=== PATIENT | female | born 1970 | race Caucasian/White ===

== ENCOUNTER → 2019-01-14 | Outpatient (CLI) | payer MEDICAID | LOC: CARD 08:41 | PROVIDERS: ATTEND Family Medicine | DX: I08.2 Rheumatic disorders of both aortic and tricuspid valves (principal) | CPT/HCPCS: 93306 ==

== ENCOUNTER 2019-10-07 14:30 | Emergency (ER) | payer MEDICAID ==
[~2019-10-07] VITALS: Ht 162.6 cm; Wt 120.7 kg
--- OUTSIDE RECORDS SUMMARY | 2019-10-07 14:35 | XMS REPORT ---
Author Author Wanda ESCALERA [facility] Address [address] [place] [address] Care Team Providers Care Work Measurement Engineer Name Role Phone ESCALERA, ELOISE Unavailable PROBLEMS Type Condition ICD9-CM Code [id number] Code Onset Dates Condition S tatus SNOMED Code Problem Polycythemia D75.1 Active 2309693 03 Problem Abscess of left genital labia 616.4 Active 714552824 Problem Borderline diabetes 790.29 Active 6533538 Problem Type 2 diabetes mellitus wit h hyperosmolarity without coma, without long-term current use of insulin E11.00 Active 719827480503046 Problem Type 2 diabetes mellitus wit hout complication, without long-term current use of insulin E11.9 Active 176465539 Problem Hypertension I10 Active 2155239 3 Problem Hypertension 401.9 Active 9156617 3 Problem Other abnormal glucose R73.09 Active 580032086 Problem Mixed hyperlipidemia E78.2 Active 330561003 ALLERGIES No Information ENCOUNTERS Encounter Location Date Diagnosis [facility] [address] [place] [phone] Nov, 18 [facility] [address] [place] [phone] Oct, 18 [facility] [address] [place] [address] Oct, 18 [facility] [address] [place] [phone] Oct, 18 [facility] [address] [place] [address] Oct, 18 [facility] [address] [place] [address] [id number] [place] [address] Jun, [facility] [address] [place] [address] Jun, 18 [facility] [address] [place] [address] 15 Jun, 18 [facility] [address] [facility] [id number] [address] [place] [address] 07 Jun, 2017 [facility] [place] [address] [place] [address] Apr, 18 Hypertension I10 and Type 2 diabetes mellitus without complication, without long-term current use of insulin E11.9 [facility] [place] [address] [place] [address] Apr, 18 Type 2 diabetes mellitus without complication, without long-term current use of insulin E11.9 [facility] [place] [address] [place] [address] 28 Mar, 17 [facility] [place] [address] [place] [address] 31 Jan, 17 [facility] [place] [address] [place] [address] 09 Jan, 17 [facility] [place] [address] [place] [address] Dec, 17 [facility] [place] [address] [place] [address] 30 Nov, 17 Rhinorrhea J34.89 [facility] [place] [address] [place] [address] 23 Nov, 17 Type 2 diabetes mellitus without complication, without long-term current use of insulin E11.9 [facility] [place] [address] [place] [address] 18 Nov, 17 [facility] [place] [address] [place] [address] 16 Nov, 17 [facility] [place] [address] [place] [address] 16 Nov, 17 [facility] [place] [address] [place] [address] 15 Nov, 17 Type 2 diabetes mellitus without complication, without long-term current use of insulin E11.9 [facility] [place] [address] [place] [address] 08 Nov, 17 Well woman exam with routine gynecological exam Z01.419 and Hypertension I10 [facility] [place] [address] [place] [address] Oct, 17 [facility] [place] [address] [place] [address] Oct, 17 Type 2 diabetes mellitus without complication, without long-term current use of insulin E11.9 [facility] [place] [address] [place] [address] Oct, 17 [facility] [place] [address] [place] [address] Oct, 17 [facility] [place] [address] [place] [address] Sep, 17 [facility] [place] [address] [place] [address] August, 17 Hypertension I10 ; Mixed hyperlipidemia E78.2 ; Type 2 diabetes mellitus without complication, without long-term current use of insulin E11.9 and Polycythemia D75.1 [facility] [place] [address] [place] [address] Jul, 17 [facility] [place] [address] [place] [address] Jul, 17 [facility] [place] [address] [place] [address] Jul, 17 [facility] [place] [address] [place] [address] Jul, 17 [facility] [place] [address] [place] [address] Jul, 17 Type 2 diabetes mellitus without complication, without long-term current use of insulin E11.9 [facility] [place] [address] [place] [address] Jul, 17 Type 2 diabetes mellitus without complication, without long-term current use of insulin E11.9 [facility] [place] [address] [place] [address] Jul, 17 Elevated liver enzymes R74.8 and KARELY (acute kidney injury) N17.9 [facility] [place] [address] [place] [address] Jun, 17 Jaundice R17 [facility] [place] [address] [place] [address] Jun, 17 Jaundice R17 [facility] [place] [address] [place] [address] Jun, 17 Cellulitis of right lower extremity L03.115 [facility] [address] [address] Jun, 17 Dental examination Z01.20 [facility] [place] [address] [place] [address] Jun, 17 Hypertension I10 ; Mixed hyperlipidemia E78.2 and Type 2 diabetes mellitus without complication, without long-term current use of insulin E11.9 [facility] [address] [address] Jun, 17 Type 2 diabetes mellitus with hyperosmolarity without coma, without long-term current use of insulin E11.[address] [facility] [address] [address] May, [address] [facility] [address] [address] May, 17 Type 2 diabetes mellitus without complication, without long-term current use of insulin E11.9 [facility] [address] [address] Apr, 17 [facility] [address] [address] Apr, 17 Type 2 diabetes mellitus with hyperosmolarity without coma, without long-term current use of insulin E11.00 [facility] [address] [place] [address] Apr, 17 Type 2 diabetes mellitus with hyperosmolarity without coma, without long-term current use of insulin E11.00 [facility] [address] [place] [address] Feb, 16 Low serum erythropoietin level R79.89 and Abnormal CBC R79.89 [facility] [address] [address] Feb, 16 Abnormal CBC R79.[address] [facility] [address] [address] Jan, 16 Abnormal CBC [facility]79.89 [facility] [address] [address] Jan, 16 Hypertension I10 [facility] [address] [address] Dec, 16 [facility]10 [facility] [address] [address] Dec, 16 Hypertension I10 ; Mixed hyperlipidemia E78.2 and Anemia D64.9 [facility] [address] [address] Nov, 16 [facility] [address] [address] Nov, 16 Hypertension I10 [facility] [address] [address] Nov, 16 Hypertension I10 ; Type 2 diabetes mellitus with hyperosmolarity without coma, without long- term current use of insulin E11.00 and Mixed hyperlipidemia E78.2 [facility] [address] [address] Nov, 16 Hypertension I10 ; Other abnormal glucose R73.09 ; Screening for lipoid disorders Z13.220 and Abnormal CBC R79.89 [facility] [address] [address] Oct, 16 [facility] [address] [address] Sep, [address] [facility] [address] [address] Jun, 16 Hypertension I10 [facility] [address] [address] Apr, [address] [address] [address] Dec, 15 Hypertension 401.9 [facility] [address] [address] 20 Elijah, 20 15 Hypertension 401.9 and Borderline diabetes 790.29 IMMUNIZATIONS No Known Immunizations SOCIAL HISTORY Never Assessed REASON FOR VISIT repository med PLAN OF CARE VITAL SIGNS MEDICATIONS Medication Instructions Dosage Frequency Start Date End Date Duration S dee Lisinopril 10 mg TAKE 1 TABLET BY MOUTH DAILY Orally 30 30 Active Tradjenta 5 mg Orally Once a day 1 tablet 24h Jul, 9 0 days Active RESULTS No Results PROCEDURES No Known procedures INSTRUCTIONS MEDICATIONS ADMINISTERED No Known Medications MEDICAL (GENERAL) HISTORY Type Description Date Medical History Essential (primary) hypertension Medical History Mixed hyperlipidemia Medical History Other abnormal glucose Medical History diabetes Surgical History appendectomy Surgical History section Hospitalization History Surgery(s)/Childbirth(s) only
--- OUTSIDE RECORDS SUMMARY | 2019-10-07 14:35 | XMS REPORT ---
Author Author Wanda MATT Organization [facility] [address] [place] Address [address] [place] [address] Care Team Providers Care Statistical Consultant Name Role Phone HAILEE MATT Unavailable PROBLEMS Type Condition ICD9-CM Code [id number] Code Onset Dates Condition S tatus SNOMED Code Problem Type 2 diabetes mellitus wit hout complication, without long-term current use of insulin E11.9 Active 732136498 Problem Type 2 diabetes mellitus wit h hyperosmolarity without coma, without long-term current use of insulin E11.00 Active 792097585747301 Problem Polycythemia D75.1 Active 9080164 03 Problem Hypertension I10 Active 6218646 3 Problem Mixed hyperlipidemia E78.2 Active 013352693 Problem Other abnormal glucose R73.09 Active 122419541 ALLERGIES No Information ENCOUNTERS Encounter Location Date Diagnosis [facility] [address] [facility] [id number] [address] [place] [address] Jan, [facility] [address] [place] [address] Dec, [facility] [address] [place] [address] Dec, Type 2 diabetes mellitus without complication, without long-term current use of insulin E11.9 ; Heart murmur R01.1 and Encounter for immunization Z23 [facility] [address] [place] [address] Nov, 19 [facility] [address] [place] [address] Oct, 19 [facility] [address] [place] [address] August, 19 [facility] [address] [place] [address] August, 19 Type 2 diabetes mellitus without complication, without long-term current use of insulin E11.9 ; Elevated TSH R79.89 ; Hypertension I10 and Mixed hyperlipidemia E78.2 [facility] [address] [place] [address] August, 19 Type 2 diabetes mellitus without complication, without long-term current use of insulin E11.9 [facility] [address] [place] [address] 16 August, 19 [facility] [address] [place] [address] August, 19 [facility] [address] [place] [address] [place] [address] 24 Jul, 19 Type 2 diabetes mellitus without complication, without long-term current use of insulin E11.9 [facility] [address] [place] [address] 10 Jul, 19 Type 2 diabetes mellitus without complication, without long-term current use of insulin E11.9 [facility] [address] [place] [address] 25 Jun, 19 [facility] [address] [place] [address] 14 Jun, 19 [facility] [address] [place] [address] Jun, 19 Type 2 diabetes mellitus without complication, without long-term current use of insulin E11.9 [facility] [address] [place] [address] 25 May, 19 [facility] [address] [place] [address] May, 19 [facility] [address] [place] [address] May, 19 [facility] [address] [place] [address] 05 May, 19 Hypertension I10 ; Type 2 diabetes mellitus without complication, without long-term current use of insulin E11.9 ; Mixed hyperlipidemia E78.2 and BMI 40.0-44.9, adult Z68.41 [facility] [address] [facility] [id number] [address] [place] [address] Apr, [address] [place] [address] Apr, 19 [facility] [place] [address] [place] [address] Apr, 19 [facility] [place] [address] [place] [address] Jan, 18 [facility] [place] [address] [place] [address] Nov, 18 [facility] [place] [address] [facility] [address] Oct, 18 [facility] [place] [address] [facility] [address] Oct, 18 [facility] [place] [address] [place] [address] Oct, 18 [facility] [place] [address] [place] [address] Oct, 18 [facility] [address] [place] [id number] [address] [place] [address] Jun, [facility] [place] [address] [place] [address] Jun, 18 [facility] [place] [address] [place] [address] Jun, 18 [facility] [address] [place] [id number] [address] [place] [address] Jun, [facility] [place] [address] [place] [address] Apr, 18 Hypertension I10 and Type 2 diabetes mellitus without complication, without long-term current use of insulin E11.9 [facility] [place] [address] [place] [address] Apr, 18 Type 2 diabetes mellitus without complication, without long-term current use of insulin E11.9 [facility] [place] [address] [place] [address] Mar, 20 17 [facility] [place] [address] [place] [address] Jan, 20 17 [facility] [place] [address] [place] [address] 09 Jan, 17 [facility] [place] [address] [place] [address] Dec, 17 [facility] [place] [address] [place] [address] 30 Nov, 17 Rhinorrhea J34.89 [facility] [place] [address] [place] [address] 23 Nov, 17 Type 2 diabetes mellitus without complication, without long-term current use of insulin E11.9 [facility] [place] [address] [place] [address] 18 Nov, 17 [facility] [place] [address] [place] [address] 16 Nov, 17 [facility] [place] [address] [place] [address] 16 Nov, 17 [facility] [place] [address] [place] [address] 15 Nov, 17 Type 2 diabetes mellitus without complication, without long-term current use of insulin E11.9 [facility] [place] [address] [place] [address] 08 Nov, 17 Well woman exam with routine gynecological exam Z01.419 and Hypertension I10 [facility] [place] [address] [place] [address] Oct, 17 [facility] [place] [address] [place] [address] Oct, 17 Type 2 diabetes mellitus without complication, without long-term current use of insulin E11.9 [facility] [place] [address] [place] [address] Oct, 17 [facility] [place] [address] [place] [address] Oct, 17 [facility] [place] [address] [place] [address] Sep, 17 [facility] [place] [address] [place] [address] 12 August, 17 Hypertension I10 ; Mixed hyperlipidemia E78.2 ; Type 2 diabetes mellitus without complication, without long-term current use of insulin E11.9 and Polycythemia D75.1 [facility] [place] [address] [place] [address] 17 Jul, 17 [facility] [place] [address] [place] [address] 17 Jul, 17 [facility] [place] [address] [place] [address] Jul, 17 [facility] [place] [address] [place] [address] Jul, 17 [facility] [place] [address] [place] [address] Jul, 17 Type 2 diabetes mellitus without complication, without long-term current use of insulin E11.9 [facility] [address] [place] [address] 05 Jul, 17 Type 2 diabetes mellitus without complication, without long-term current use of insulin E11.[address] [facility] [address] [address] 04 Jul, 17 Elevated liver enzymes R74.8 and KARELY (acute kidney injury) N17.[address] [facility] [address] [address] 28 Jun, 17 Jaundice R17 [facility] [address] [address] 28 Jun, 17 Jaundice R17 [facility] [address] [address] 22 Jun, 17 Cellulitis of right lower extremity L03.115 [facility] [address] [address] 22 Jun, 17 Dental examination Z01.20 [facility] [address] [address] 07 Jun, 17 Hypertension I10 ; Mixed hyperlipidemia E78.2 and Type 2 diabetes mellitus without complication, without long-term current use of insulin E11.[address] [facility] [address] [address] 03 Jun, 17 Type 2 diabetes mellitus with hyperosmolarity without coma, without long-term current use of insulin E11.00 [facility] [address] [place] [address] May, 17 [facility] [address] [address] May, 17 Type 2 diabetes mellitus without complication, without long-term current use of insulin E11.9 [facility] [place] [address] [place] [address] Apr, 17 [facility] [address] [address] Apr, 17 Type 2 diabetes mellitus with hyperosmolarity without coma, without long-term current use of insulin E11.[address] [facility] [address] [address] Apr, 17 Type 2 diabetes mellitus with hyperosmolarity without coma, without long-term current use of insulin E11.[address] [address] [address] [address] Feb, 16 Low serum erythropoietin level R79.89 and Abnormal CBC R79.[address] [address] Feb, 16 Abnormal CBC R79.89 [facility] [address] [address] Jan, 16 Abnormal CBC R79.89 [facility] [address] [address] Jan, 16 Hypertension I10 [facility] [address] [address] Dec, 16 Hypertension I10 [facility] [address] [address] Dec, 16 Hypertension I10 ; Mixed hyperlipidemia E78.2 and Anemia D64.[address] [address] Nov, 16 [facility] [address] [address] Nov, 16 [address] [address] Nov, 16 Hypertension I10 ; Type 2 diabetes mellitus with hyperosmolarity without coma, without long- term current use of insulin E11.00 and Mixed hyperlipidemia E78.[address] [address] Nov, 16 Hypertension I10 ; Other abnormal glucose R73.09 ; Screening for lipoid disorders Z13.220 and Abnormal CBC R79.[address] [address] Oct, [address] [address] Sep, [address] [address] Jun, 16 Hypertension I10 [address] [address] Apr, [address] [address] Dec, 15 Hypertension 401.[address] [address] Oct, 15 Hypertension 401.9 and Borderline diabetes 790.29 IMMUNIZATIONS No Known Immunizations SOCIAL HISTORY Never Assessed REASON FOR VISIT Lancets (repository) PLAN OF CARE VITAL SIGNS MEDICATIONS Unknown Medications RESULTS No Results PROCEDURES No Known procedures INSTRUCTIONS MEDICATIONS ADMINISTERED No Known Medications MEDICAL (GENERAL) HISTORY Type Description Date Medical History Essential (primary) hypertension Medical History Mixed hyperlipidemia Medical History Other abnormal glucose Medical History diabetes Surgical History appendectomy Surgical History section Hospitalization History Surgery(s)/Childbirth(s) only
--- OUTSIDE RECORDS SUMMARY | 2019-10-07 14:35 | XMS REPORT ---
Author Author Wanda ESCALERA [facility] Address [address] [place] [address] Care Team Providers Care Central Office Technician Name Role Phone ESCALERA, ELOISE Unavailable PROBLEMS Type Condition ICD9-CM Code [id number] Code Onset Dates Condition S tatus SNOMED Code Problem Polycythemia D75.1 Active 9047678 03 Problem Abscess of left genital labia 616.4 Active 003443922 Problem Borderline diabetes 790.29 Active 4071260 Problem Type 2 diabetes mellitus wit h hyperosmolarity without coma, without long-term current use of insulin E11.00 Active 159731927523408 Problem Type 2 diabetes mellitus wit hout complication, without long-term current use of insulin E11.9 Active 754612349 Problem Hypertension I10 Active 7456371 3 Problem Hypertension 401.9 Active 3621815 3 Problem Other abnormal glucose R73.09 Active 444139491 Problem Mixed hyperlipidemia E78.2 Active 158293650 ALLERGIES No Information ENCOUNTERS Encounter Location Date Diagnosis [facility] [address] [place] [phone] Nov, 18 [facility] [address] [place] [phone] Oct, 18 [facility] [address] [place] [phone] Oct, 18 [facility] [address] [place] [phone] Oct, [address] [facility] [address] [place] [phone] Oct, 18 [facility] [address] [place] [address] [id number] [address], [place] [address] Jun, [facility] [address] [place] [phone] Jun, [address] [facility] [address] [place] [address] 15 Jun, 18 [facility] [address] [facility] [id number] [address] [place] [address] 07 Jun, 2017 [facility] [place] [address] [place] [address] Apr, 18 Hypertension I10 and Type 2 diabetes mellitus without complication, without long-term current use of insulin E11.9 [facility] [place] [address] [place] [address] Apr, 18 Type 2 diabetes mellitus without complication, without long-term current use of insulin E11.9 [facility] [place] [address] [place] [address] 28 Mar, 17 [facility] [place] [address] [place] [address] 31 Jan, 17 [facility] [place] [address] [place] [address] 09 Jan, 17 [facility] [place] [address] [place] [address] Dec, 17 [facility] [place] [address] [place] [address] 30 Nov, 17 Rhinorrhea J34.89 [facility] [place] [address] [place] [address] 23 Nov, 17 Type 2 diabetes mellitus without complication, without long-term current use of insulin E11.9 [facility] [place] [address] [place] [address] 18 Nov, 17 [facility] [place] [address] [place] [address] 16 Nov, 17 [facility] [place] [address] [place] [address] 16 Nov, 17 [facility] [place] [address] [place] [address] 15 Nov, 17 Type 2 diabetes mellitus without complication, without long-term current use of insulin E11.9 [facility] [place] [address] [place] [address] 08 Nov, 17 Well woman exam with routine gynecological exam Z01.419 and Hypertension I10 [facility] [place] [address] [place] [address] Oct, 17 [facility] [place] [address] [place] [address] Oct, 17 Type 2 diabetes mellitus without complication, without long-term current use of insulin E11.9 [facility] [place] [address] [place] [address] Oct, 17 [facility] [place] [address] [place] [address] Oct, 17 [facility] [place] [address] [place] [address] Sep, 17 [facility] [place] [address] [place] [address] August, 17 Hypertension I10 ; Mixed hyperlipidemia E78.2 ; Type 2 diabetes mellitus without complication, without long-term current use of insulin E11.9 and Polycythemia D75.1 [facility] [place] [address] [place] [address] Jul, 17 [facility] [place] [address] [place] [address] Jul, 17 [facility] [place] [address] [place] [address] Jul, 17 [facility] [place] [address] [place] [address] Jul, 17 [facility] [place] [address] [place] [address] Jul, 17 Type 2 diabetes mellitus without complication, without long-term current use of insulin E11.9 [facility] [place] [address] [place] [address] Jul, 17 Type 2 diabetes mellitus without complication, without long-term current use of insulin E11.9 [facility] [place] [address] [place] [address] Jul, 17 Elevated liver enzymes R74.8 and KARELY (acute kidney injury) N17.9 [facility] [place] [address] [place] [address] Jun, 17 Jaundice R17 [facility] [place] [address] [place] [address] Jun, 17 Jaundice R17 [facility] [place] [address] [place] [address] Jun, 17 Cellulitis of right lower extremity L03.115 [facility] [address] [address] Jun, 17 Dental examination Z01.20 [facility] [place] [address] [place] [address] Jun, 17 Hypertension I10 ; Mixed hyperlipidemia E78.2 and Type 2 diabetes mellitus without complication, without long-term current use of insulin E11.9 [facility] [address] [address] Jun, 17 Type 2 diabetes mellitus with hyperosmolarity without coma, without long-term current use of insulin E11.[address] [facility] [address] [address] May, [address] [facility] [address] [address] May, 17 Type 2 diabetes mellitus without complication, without long-term current use of insulin E11.9 [facility] [address] [address] Apr, [address] [facility] [address] [address] Apr, 17 Type 2 diabetes mellitus with hyperosmolarity without coma, without long-term current use of insulin E11.00 [facility] [address] [place] [address] Apr, 17 Type 2 diabetes mellitus with hyperosmolarity without coma, without long-term current use of insulin E11.00 [facility] [address] [place] [address] Feb, 16 Low serum erythropoietin level R79.89 and Abnormal CBC R79.89 [facility] [address] [address] Feb, 16 Abnormal CBC R79.[address] [facility] [address] [address] Jan, 16 Abnormal CBC R79.89 [facility] [address] [address] Jan, 16 Hypertension I10 [facility] [address] [address] Dec, 16 Hypertension I10 [facility] [address] [address] Dec, 16 Hypertension I10 ; Mixed hyperlipidemia E78.2 and Anemia D64.9 [facility] [address] [address] Nov, 16 [facility] [address] [address] Nov, 16 Hypertension I10 [facility] [address] [address] Nov, 16 Hypertension I10 ; Type 2 diabetes mellitus with hyperosmolarity without coma, without long- term current use of insulin E11.00 and Mixed hyperlipidemia E78.2 [facility] [address] [address] Nov, 16 Hypertension I10 ; Other abnormal glucose R73.09 ; Screening for lipoid disorders Z13.220 and Abnormal CBC R79.89 [facility] [address] [address] Oct, 16 [facility] [address] [address] Sep, [address] [facility] [address] [address] Jun, 16 Hypertension I10 [facility] [address] [address] Apr, [address] [place] [address] Dec, 15 Hypertension 401.9 [facility] [address] [address] 20 Elijah, 20 15 Hypertension 401.9 and Borderline diabetes 790.29 IMMUNIZATIONS No Known Immunizations SOCIAL HISTORY Never Assessed REASON FOR VISIT repository med refill PLAN OF CARE VITAL SIGNS MEDICATIONS Unknown Medications RESULTS No Results PROCEDURES No Known procedures INSTRUCTIONS MEDICATIONS ADMINISTERED No Known Medications MEDICAL (GENERAL) HISTORY Type Description Date Medical History Essential (primary) hypertension Medical History Mixed hyperlipidemia Medical History Other abnormal glucose Medical History diabetes Surgical History appendectomy Surgical History section Hospitalization History Surgery(s)/Childbirth(s) only
--- OUTSIDE RECORDS SUMMARY | 2019-10-07 14:36 | XMS REPORT ---
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 Name Role Phone ELOISE ESCALERA CP Unavailable Allergies, Adverse Reactions, Alerts Substance Reaction Event Type Keflex numbness in extremities Drug Allergy Problems Problem Type Condition Code Onset Dates Condition Statu s Assessment Abnormal CBC R79.89 Active Problem Mixed hyperlipidemia E78.2 Active Problem Hypertension I10 Active Problem Other abnormal glucose R73.09 Activ e Problem Abscess of left genital labia 616.4 Active Assessment Low serum erythropoietin level R79.89 Active Problem Hypertension 401.9 Active Problem Borderline diabetes 790.29 Active Medications Medication Code System Code Instructions Start Date End Date Status Dosage Hydrochlorothiazide [facility] [address]-48 25 MG Orally Once a day Dec 062015 1 tablet Metformin HCl [facility] [address]-73 1000 MG Orally Twice a day 2 capsules Lovastatin [facility] [address]-74 40 mg Orally Once a day Nov 14, 2015 1 tablet with a meal Lisinopril [facility] [address]-31 40 mg Orally Once a day 1 tablet Once a day Orally Procedures Procedure Coding System Code Date Office Visit, Est Pt., Level 3 CPT-4 05083 N 2015 Vital Signs Date/Time: Feb 07, 2016 Cardiac Monitoring Heart Rate 72 bpm Weight 221.7 lbs Height 5'4" in BMI 38.05 Index Blood Pressure Diastolic 62 mmHg Blood Pressure Systolic 118 mmHg Results No Known Results Summary Purpose [employer] Submission
--- OUTSIDE RECORDS SUMMARY | 2019-10-07 14:36 | XMS REPORT ---
Author Author aWnda LEYVA Organization [facility] Address [address] [place] [address] Care Team Providers Care Wall Mirror Department Supervisor Name Role Phone LOKESH LEYVA Unavailable PROBLEMS Type Condition ICD9-CM Code [id number] Code Onset Dates Condition S tatus SNOMED Code Problem Polycythemia D75.1 Active 1786538 03 Problem Abscess of left genital labia 616.4 Active 826311759 Problem Borderline diabetes 790.29 Active 9230208 Problem Type 2 diabetes mellitus wit h hyperosmolarity without coma, without long-term current use of insulin E11.00 Active 951307976805231 Problem Type 2 diabetes mellitus wit hout complication, without long-term current use of insulin E11.9 Active 147999131 Problem Hypertension I10 Active 3917402 3 Problem Hypertension 401.9 Active 7046087 3 Problem Other abnormal glucose R73.09 Active 130557102 Problem Mixed hyperlipidemia E78.2 Active 981667594 ALLERGIES Substance Reaction Event Type Date Status Keflex numbness in extremities Drug Allergy Nov, Acti ve ENCOUNTERS Encounter Location Date Diagnosis [facility] [address] [facility] [id number] [address] [place] [phone] Jun, [facility] [place] [address] [facility] [address] [id number] [place] [address] Jun, [facility] [place] [address] [facility] [id number] [place], [place] [address] Jun, [facility] [address] [facility] [id number] [address] [place] [address] Jun, [facility] [place] [address] [facility] [address] [id number] [place], [place] [phone] Apr, Hypertension I10 and Type 2 diabetes mellitus without complication, without long-term current use of insulin E11.9 [facility] [place] [address] [facility] [id number] [place] [address]1360 Apr, Type 2 diabetes mellitus without complication, without long-term current use of insulin E11.9 [facility] [place] [address] [facility] [address] [id number] [place], [place] [address] 603736 Mar, [facility] [place] [address] [facility] [address] [id number] [place], [place] [address]99[address] Jan, [facility] [place] [address] [facility] [address] [id number] [place] [address] 6970[address] Jan, [facility] [place] [address] [facility] [address] [id number] [place], [place] [address] 9839[address] Dec, [facility] [place] [address] [facility] [address] [id number] [place], [place] [address]23557 Nov, Rhinorrhea J34.89 [facility] [place] [address] [facility] [address] [id number] [place], [place] [address] 829735 Nov, Type 2 diabetes mellitus without complication, without long-term current use of insulin E11.9 [facility] [place] [address] [facility] [address] [id number] [place] [address] Nov, [facility] [place] [address] [facility] [address] [id number] [place] [address] 805130 Nov, [facility] [place] [address] [facility] [address] [id number] [place] [address] 602848 Nov, [facility] [place] [address] [facility] [address] [id number] [place] [address] 761901 Nov, Type 2 diabetes mellitus without complication, without long-term current use of insulin E11.9 [facility] [place] [address] [facility] [address] [id number] [place] [address] 335292 Nov, Well woman exam with routine gynecological exam Z01.419 and Hypertension I10 [facility] [place] [address] [facility] [address] [id number] [place] [address] 198630 Oct, [facility] [place] [address] [facility] [address] [id number] [place] [address] 006574 Oct, Type 2 diabetes mellitus without complication, without long-term current use of insulin E11.9 [facility] [place] [address] [facility] [address] [id number] [place] [address]268 Oct, [facility] [place] [address] [facility] [address] [id number] [place] [address]604 Oct, [facility] [place] [address] [facility] [address] [id number] [place] [address]751 Sep, [facility] [place] [address] [facility] [address] [id number] [place] [address] 619685 August, Hypertension I10 ; Mixed hyperlipidemia E78.2 ; Type 2 diabetes mellitus without complication, without long-term current use of insulin E11.9 and Polycythemia D75.1 [facility] [place] [address] [facility] [address] [id number] [place] [address] 836095 Jul, [facility] [place] [address] [facility] [address] [id number] [place] [address] 942791 Jul, [facility] [place] [address] [facility] [address] [id number] [place] [address] 899733 Jul, [facility] [place] [address] [facility] [address] [id number] [place] [address] 422116 Jul, [facility] [place] [address] [facility] [address] [id number] [place] [address] 055266 Jul, Type 2 diabetes mellitus without complication, without long-term current use of insulin E11.9 [facility] [place] [address] [facility] [address] [id number] [place] [address] 209836 Jul, Type 2 diabetes mellitus without complication, without long-term current use of insulin E11.9 [facility] [place] [address] [facility] [address] [id number] [place] [address] 011995 Jul, Elevated liver enzymes R74.8 and KARELY (acute kidney injury) N17.9 [facility] [place] [address] [facility] [address] [id number] [place] [address] 354617 Jun, Jaundice R17 [facility] [place] [address] [facility] [address] [id number] [place] [address] 260731 Jun, Jaundice R17 [facility] [place] [address] [facility] [address] [id number] [place] [address] 848556 Jun, Cellulitis of right lower extremity L03.115 [facility] [place] [address] [facility] [id number] [place] [address] 743778 Jun, Dental examination Z01.20 [facility] [place] [address] [facility] [id number] [place] [address] 503223 Jun, Hypertension I10 ; Mixed hyperlipidemia E78.2 and Type 2 diabetes mellitus without complication, without long-term current use of insulin E11.9 [facility] [place] [address] [place] [address] C [id number] [place] [address] 173431 Jun, Type 2 diabetes mellitus with hyperosmolarity without coma, without long-term current use of insulin E11.00 [facility] [place] [address] [place] [address] C [id number] [place], [place] [address] 721254 May, [facility] [place] [address] [place] [address] C [id number] [place] [address] 317168 May, Type 2 diabetes mellitus without complication, without long-term current use of insulin E11.9 [facility] [place] [address] [place] [address] C [id number] [place] [address] 614045 Apr, [facility] [place] [address] [place] [address] C [id number] [place] [address] 540839 Apr, Type 2 diabetes mellitus with hyperosmolarity without coma, without long-term current use of insulin E11.00 [facility] [place] [address] [place] [address] C [id number] [place] [address] 876394 Apr, Type 2 diabetes mellitus with hyperosmolarity without coma, without long-term current use of insulin E11.00 [facility] [place] [address] [place] [address] C [id number] [place] [address] 622521 Feb, Low serum erythropoietin level R79.89 and Abnormal CBC R79.89 [facility] [place] [address] [place] [address] C [id number] [place] [address] 775216 Feb, Abnormal CBC R79.89 [facility] [place] [address] [place] [address] C [id number] [place], [place] [address] 220823 Jan, Abnormal CBC R79.89 [facility] [place] [address] [place] [address] C [id number] [place], [place] [address] 320467 Jan, Hypertension I10 [facility] [place] [address] [facility] [address] [id number] [place] [address] 081991 Dec, Hypertension I10 [facility] [place] [address] [facility] [address] [id number] [place] [address] 832483 Dec, Hypertension I10 ; Mixed hyperlipidemia E78.2 and Anemia D64.9 [facility] [place] [address] [facility] [address] [id number] [place] [address] 927662 Nov, [facility] [place] [address] [facility] [address] [id number] [place] [address] 387051 Nov, Hypertension I10 [facility] [place] [address] [facility] [address] [id number] [place] [address] 679397 Nov, Hypertension I10 ; Type 2 diabetes mellitus with hyperosmolarity without coma, without long-term current use of insulin E11.00 and Mixed hyperlipidemia E78.2 [facility] [place] [address] [facility] [address] [id number] [place] [address] 104826 Nov, Hypertension I10 ; Other abnormal glucose R73.09 ; Screening for lipoid disorders Z13.220 and Abnormal CBC R79.89 [facility] [place] [address] [facility] [address] [id number] [place] [address] 278325 Oct, [facility] [place] [address] [facility] [address] [id number] [place] [address] 514660 Sep, [facility] [place] [address] [facility] [address] [id number] [place] [address] 136670 Jun, Hypertension I10 [facility] [place] [address] [facility] [address] [id number] [place] [address] 723508 Apr, [facility] [place] [address] [facility] [address] [id number] [place] [address] 767540 30 Dec, 2014 Hypertension 401.9 [facility] [place] [address] [facility] [address] [id number] [place] [address] 040348 Oct, Hypertension 401.9 and Borderline diabetes 790.29 IMMUNIZATIONS No Known Immunizations SOCIAL HISTORY Never Assessed REASON FOR VISIT Sinus c/o runny nose, coming & going, bridge of nose inside just doesn't feel right; 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....................lwileyrn PLAN OF CARE Activity Details Follow Up prn Reason: VITAL SIGNS Height 5'4" in 2016-12-03 Weight 223 lbs 2016-12-03 Temperature 97.4 degrees Fahrenheit 2016-12-03 Heart Rate 72 bpm 2016-12-03 Respiratory Rate 18 2016-12-03 BMI 38.27 kg/m2 2016-12-03 Blood pressure systolic 130 mmHg 2016-12-03 Blood pressure diastolic 72 mmHg 2016-12-03 MEDICATIONS Medication Instructions Dosage Frequency Start Date End Date Duration S tatus Aspirin Adult Low Dose 81 MG Orally Once a day 1 tablet 24h Active Tradjenta 5 mg Orally Once a day 1 tablet 24h Jul, Active Lisinopril 10 MG TAKE 1 TABLET BY MOUTH DAILY Orally 30 30 Active Hydroxyurea 500 MG Activ e RESULTS No Results PROCEDURES No Known procedures INSTRUCTIONS MEDICATIONS ADMINISTERED No Known Medications MEDICAL (GENERAL) HISTORY Type Description Date Medical History Essential (primary) hypertension Medical History Mixed hyperlipidemia Medical History Other abnormal glucose Medical History diabetes Surgical History appendectomy Surgical History section Hospitalization History Surgery(s)/Childbirth(s) only
--- OUTSIDE RECORDS SUMMARY | 2019-10-07 14:36 | XMS REPORT ---
Author Author Wanda ESCALERA [facility] Address [address] [place] [address] Care Team Providers Care Set O Type Operator Name Role Phone JW ELOISE Unavailable PROBLEMS Type Condition ICD9-CM Code ATN41-LX Code Onset Dates Condition S tatus SNOMED Code Problem Polycythemia D75.1 Active 1938385 03 Problem Abscess of left genital labia 616.4 Active 767057424 Problem Borderline diabetes 790.29 Active 7541182 Problem Type 2 diabetes mellitus wit h hyperosmolarity without coma, without long-term current use of insulin E11.00 Active 280622773657517 Problem Type 2 diabetes mellitus wit hout complication, without long-term current use of insulin E11.9 Active 114542952 Problem Hypertension I10 Active 7458480 3 Problem Hypertension 401.9 Active 8841551 3 Problem Other abnormal glucose R73.09 Active 658465669 Problem Mixed hyperlipidemia E78.2 Active 055180208 ALLERGIES No Information ENCOUNTERS Encounter Location Date Diagnosis [facility] [address] [facility] [id number] [address] [place] [phone] 27 Jun, 2017 [facility] [place] [address] [facility] [address] [id number] [place] [address] Jun, [facility] [address] [facility] [address] [id number] [place] [phone] 15 Jun, 2017 [facility] [address] [facility] [id number] [address] [place] [phone] 07 Jun, 2017 [facility] [place] [address] [facility] [address] [id number] [place] [phone] Apr, Hypertension I10 and Type 2 diabetes mellitus without complication, without long-term current use of insulin E11.9 [facility] [address] [facility] [address] [id number] [place], [place] [address] 277196 Apr, Type 2 diabetes mellitus without complication, without long-term current use of insulin E11.9 [facility] [place] [address] [facility] [address] [id number] [place] [address] 956[address] Mar, [facility] [place] [address] [facility] [address] [id number] [place] [address] Jan, [facility] [place] [address] [facility] [address] [id number] [place] [address] 837124 Jan, [facility] [place] [address] [facility] [address] [id number] [place] [address] 387951 Dec, [facility] [place] [address] [facility] [address] [id number] [place] [address] 233023 Nov, Rhinorrhea J34.89 [facility] [place] [address] [facility] [address] [id number] [place] [address] 076132 Nov, Type 2 diabetes mellitus without complication, without long-term current use of insulin E11.9 [facility] [place] [address] [facility] [address] [id number] [place] [address] 634893 Nov, [facility] [place] [address] [facility] [address] [id number] [place] [address] 278964 Nov, [facility] [place] [address] [facility] [address] [id number] [place] [address] 518182 Nov, [facility] [place] [address] [facility] [address] [id number] [place] [address] 396341 15 Nov, 2016 Type 2 diabetes mellitus without complication, without long-term current use of insulin E11.9 [facility] [place] [address] [facility] [address] [id number] [place] [address] 679064 Nov, Well woman exam with routine gynecological exam Z01.419 and Hypertension I10 [facility] [place] [address] [facility] [address] [id number] [place] [address] 744441 Oct, [facility] [place] [address] [facility] [address] [id number] [place] [address] 831894 Oct, Type 2 diabetes mellitus without complication, without long-term current use of insulin E11.9 [facility] [place] [address] [facility] [address] [id number] [place] [address] 606202 Oct, [facility] [place] [address] [facility] [address] [id number] [place] [address] 509653 Oct, [facility] [place] [address] [facility] [address] [id number] [place] [address] 613857 Sep, [facility] [place] [address] [facility] [address] [id number] [place] [address] 586233 August, Hypertension I10 ; Mixed hyperlipidemia E78.2 ; Type 2 diabetes mellitus without complication, without long-term current use of insulin E11.9 and Polycythemia D75.1 [facility] [place] [address] [facility] [address] [id number] [place] [address] 176648 Jul, [facility] [place] [address] [facility] [address] [id number] [place] [address] 025435 Jul, [facility] [place] [address] [facility] [address] [id number] [place] [address] 967713 Jul, [facility] [place] [address] [facility] [address] [id number] [place] [address] 808794 Jul, [facility] [place] [address] [facility] [address] [id number] [place] [address] 278933 Jul, Type 2 diabetes mellitus without complication, without long-term current use of insulin E11.9 [facility] [place] [address] [facility] [address] [id number] [place] [address] 729988 Jul, Type 2 diabetes mellitus without complication, without long-term current use of insulin E11.9 [facility] [place] [address] [facility] [address] [id number] [place] [address] 195782 Jul, Elevated liver enzymes R74.8 and KARELY (acute kidney injury) N17.9 [facility] [place] [address] [facility] [address] [id number] [place] [address] 790519 Jun, Jaundice R17 [facility] [place] [address] [facility] [address] [id number] [place] [address] 728610 Jun, Jaundice R17 [facility] [place] [address] [facility] [address] [id number] [place] [address] 689449 Jun, Cellulitis of right lower extremity L03.115 [facility] [place] [address] [facility] [address] [id number] [place] [address] 029168 Jun, Dental examination Z01.20 [facility] [place] [address] [facility] [address] [id number] [place] [address] 224213 Jun, Hypertension I10 ; Mixed hyperlipidemia E78.2 and Type 2 diabetes mellitus without complication, without long-term current use of insulin E11.9 [facility] [place] [address] [facility] [address] [id number] [place] [address] 121228 Jun, Type 2 diabetes mellitus with hyperosmolarity without coma, without long-term current use of insulin E11.00 [facility] [place] [address] [facility] [address] [id number] [place] [address] 608378 May, [facility] [place] [address] [place] [address] C [id number] [place] [address] 024101 May, Type 2 diabetes mellitus without complication, without long-term current use of insulin E11.9 [facility] [place] [address] [place] [address] C [id number] [place] [address] 358648 Apr, [facility] [place] [address] [place] [address] C [id number] [place] [address] 172180 Apr, Type 2 diabetes mellitus with hyperosmolarity without coma, without long-term current use of insulin E11.00 [facility] [place] [address] [place] [address] C [id number] [place] [address] 816213 Apr, Type 2 diabetes mellitus with hyperosmolarity without coma, without long-term current use of insulin E11.00 [facility] [place] [address] [place] [address] C [id number] [place] [address] 843106 Feb, Low serum erythropoietin level R79.89 and Abnormal CBC R79.89 [facility] [place] [address] [place] [address] C [id number] [place] [address] 808143 Feb, Abnormal CBC R79.89 [facility] [place] [address] [place] [address] C [id number] [place] [address] 158372 Jan, Abnormal CBC R79.89 [facility] [place] [address] [place] [address] C [id number] [place] [address] 922425 Jan, Hypertension I10 [facility] [place] [address] [facility] [address] [id number] [place] [address] 253450 Dec, Hypertension I10 [facility] [place] [address] [facility] [address] [id number] [place] [address] 615636 Dec, Hypertension I10 ; Mixed hyperlipidemia E78.2 and Anemia D64.9 [facility] [place] [address] [facility] [address] [id number] [place] [address] 560996 Nov, [facility] [place] [address] [facility] [address] [id number] [place] [address] 264022 Nov, Hypertension I10 [facility] [place] [address] [place] [address] [address] [id number] [place] [address] 516521 Nov, Hypertension I10 ; Type 2 diabetes mellitus with hyperosmolarity without coma, without long-term current use of insulin E11.00 and Mixed hyperlipidemia E78.2 [facility] [place] [address] [facility] [address] [id number] [place] [address] 306826 Nov, Hypertension I10 ; Other abnormal glucose R73.09 ; Screening for lipoid disorders Z13.220 and Abnormal CBC R79.89 [facility] [place] [address] [place] [address] [address] [id number] [place] [address] 591839 Oct, [facility] [place] [address] [facility] [address] [id number] [place] [address] 372082 Sep, [facility] [place] [address] [place] [address] C [id number] [place] [address] 714792 Jun, Hypertension I10 [facility] [place] [address] [facility] [address] [id number] [place] [address] 294391 Apr, [facility] [place] [address] [place] [address] C [id number] [place] [address] 292850 Dec, Hypertension 401.9 [facility] [place] [address] [place] [address] C [id number] [place] [address] 378856 Oct, Hypertension 401.9 and Borderline diabetes 790.29 IMMUNIZATIONS No Known Immunizations SOCIAL HISTORY Never Assessed REASON FOR VISIT med request PLAN OF CARE VITAL SIGNS MEDICATIONS Unknown Medications RESULTS No Results PROCEDURES No Known procedures INSTRUCTIONS MEDICATIONS ADMINISTERED No Known Medications MEDICAL (GENERAL) HISTORY Type Description Date Medical History Essential (primary) hypertension Medical History Mixed hyperlipidemia Medical History Other abnormal glucose Medical History diabetes Surgical History appendectomy Surgical History section Hospitalization History Surgery(s)/Childbirth(s) only
--- OUTSIDE RECORDS SUMMARY | 2019-10-07 14:36 | XMS REPORT ---
Author Author Wanda ESCALERA [facility] Address [address] [place] [address] Care Team Providers Care Industrial Engineering Director Name Role Phone ESCALERA, ELOISE Unavailable PROBLEMS Type Condition ICD9-CM Code JFR96-BC Code Onset Dates Condition S tatus SNOMED Code Problem Polycythemia D75.1 Active 5868445 03 Problem Abscess of left genital labia 616.4 Active 195739736 Problem Borderline diabetes 790.29 Active 2968082 Problem Type 2 diabetes mellitus wit h hyperosmolarity without coma, without long-term current use of insulin E11.00 Active 736597049848970 Problem Type 2 diabetes mellitus wit hout complication, without long-term current use of insulin E11.9 Active 555511833 Problem Hypertension I10 Active 6822260 3 Problem Hypertension 401.9 Active 7810889 3 Problem Other abnormal glucose R73.09 Active 312165004 Problem Mixed hyperlipidemia E78.2 Active 838702926 ALLERGIES No Information ENCOUNTERS Encounter Location Date Diagnosis [facility] [address] [place] [phone] Nov, 18 [facility] [address] [place] [phone] Oct, 18 [facility] [address] [place] [phone] Oct, 18 [facility] [address] [place] [phone] Oct, 18 [facility] [address] [place] [address] Oct, 18 [facility] [address] [place] [address] [id number] [place] [address] Jun, [facility] [address] [place] [address] Jun, 18 [facility] [address] [place] [address] 15 Jun, 18 [facility] [address] [facility] [id number] [address] [place] [address] 07 Jun, 2017 [facility] [place] [address] [place] [address] Apr, 18 Hypertension I10 and Type 2 diabetes mellitus without complication, without long-term current use of insulin E11.9 [facility] [place] [address] [place] [address] Apr, 18 Type 2 diabetes mellitus without complication, without long-term current use of insulin E11.9 [facility] [place] [address] [place] [address] 28 Mar, 17 [facility] [place] [address] [place] [address] 31 Jan, 17 [facility] [place] [address] [place] [address] 09 Jan, 17 [facility] [place] [address] [place] [address] Dec, 17 [facility] [place] [address] [place] [address] 30 Nov, 17 Rhinorrhea J34.89 [facility] [place] [address] [place] [address] 23 Nov, 17 Type 2 diabetes mellitus without complication, without long-term current use of insulin E11.9 [facility] [place] [address] [place] [address] 18 Nov, 17 [facility] [place] [address] [place] [address] 16 Nov, 17 [facility] [place] [address] [place] [address] 16 Nov, 17 [facility] [place] [address] [place] [address] 15 Nov, 17 Type 2 diabetes mellitus without complication, without long-term current use of insulin E11.9 [facility] [place] [address] [place] [address] 08 Nov, 17 Well woman exam with routine gynecological exam Z01.419 and Hypertension I10 [facility] [place] [address] [place] [address] Oct, 17 [facility] [place] [address] [place] [address] Oct, 17 Type 2 diabetes mellitus without complication, without long-term current use of insulin E11.9 [facility] [place] [address] [place] [address] Oct, 17 [facility] [place] [address] [place] [address] Oct, 17 [facility] [place] [address] [place] [address] Sep, 17 [facility] [place] [address] [place] [address] August, 17 Hypertension I10 ; Mixed hyperlipidemia E78.2 ; Type 2 diabetes mellitus without complication, without long-term current use of insulin E11.9 and Polycythemia D75.1 [facility] [place] [address] [place] [address] Jul, 17 [facility] [place] [address] [place] [address] Jul, 17 [facility] [place] [address] [place] [address] Jul, 17 [facility] [place] [address] [place] [address] Jul, 17 [facility] [place] [address] [place] [address] Jul, 17 Type 2 diabetes mellitus without complication, without long-term current use of insulin E11.9 [facility] [place] [address] [place] [address] Jul, 17 Type 2 diabetes mellitus without complication, without long-term current use of insulin E11.9 [facility] [place] [address] [place] [address] Jul, 17 Elevated liver enzymes R74.8 and KARELY (acute kidney injury) N17.9 [facility] [place] [address] [place] [address] Jun, 17 Jaundice R17 [facility] [place] [address] [place] [address] Jun, 17 Jaundice R17 [facility] [address] [place] [address] Jun, 17 Cellulitis of right lower extremity L03.115 [facility] [address] [address] Jun, 17 Dental examination Z01.20 [facility] [address] [place] [address] Jun, 17 Hypertension I10 ; Mixed hyperlipidemia E78.2 and Type 2 diabetes mellitus without complication, without long-term current use of insulin E11.9 [facility] [address] [address] Jun, 17 Type 2 diabetes mellitus with hyperosmolarity without coma, without long-term current use of insulin E11.[address] [facility] [address] [address] May, 17 [facility] [address] [address] May, 17 Type 2 diabetes mellitus without complication, without long-term current use of insulin E11.9 [facility] [address] [address] Apr, 17 [facility] [address] [address] Apr, 17 Type 2 diabetes mellitus with hyperosmolarity without coma, without long-term current use of insulin E11.00 [facility] [address] [place] [address] Apr, 17 Type 2 diabetes mellitus with hyperosmolarity without coma, without long-term current use of insulin E11.00 [facility] [address] [place] [address] Feb, 16 Low serum erythropoietin level R79.89 and Abnormal CBC R79.89 [facility] [address] [address] Feb, 16 Abnormal CBC R79.[address] [facility] [address] [address] Jan, 16 Abnormal CBC R79.89 [facility] [address] [address] Jan, 16 Hypertension I10 [facility] [address] [address] Dec, 16 [facility]10 [facility] [address] [address] Dec, 16 Hypertension I10 ; Mixed hyperlipidemia E78.2 and Anemia D64.9 [facility] [address] [address] Nov, [facility] [address] [address] Nov, 16 Hypertension I10 [facility] [address] [address] Nov, 16 Hypertension I10 ; Type 2 diabetes mellitus with hyperosmolarity without coma, without long- term current use of insulin E11.00 and Mixed hyperlipidemia E78.2 [facility] [address] [address] Nov, 16 Hypertension I10 ; Other abnormal glucose R73.09 ; Screening for lipoid disorders Z13.220 and Abnormal CBC R79.89 [facility] [address] [address] Oct, 16 [facility] [address] [address] Sep, [address] [facility] [address] [address] Jun, 16 [facility]ension [facility]10 [facility] [address] [address] Apr, [address] [place] [address] Dec, 15 Hypertension 401.9 [facility] [address] [address] 20 Elijah, 20 15 Hypertension 401.9 and Borderline diabetes 790.29 IMMUNIZATIONS No Known Immunizations SOCIAL HISTORY Never Assessed REASON FOR VISIT PLAN OF CARE VITAL SIGNS MEDICATIONS Medication Instructions Dosage Frequency Start Date End Date Duration S tatus Tradjenta 5 mg Orally Once a day [...]
--- OUTSIDE RECORDS SUMMARY | 2019-10-07 14:36 | XMS REPORT ---
Author Author Wanda ESCALERA Organization [facility] [address] Address [address] [place] [address] Care Team Providers Care Salon Professional Name Role Phone ELOISE ESCALERA Unavailable PROBLEMS Type Condition ICD9-CM Code [id number] Code Onset Dates Condition S tatus SNOMED Code Problem Polycythemia D75.1 Active 0410390 03 Problem Abscess of left genital labia 616.4 Active 295828384 Problem Borderline diabetes 790.29 Active 2300404 Problem Type 2 diabetes mellitus wit h hyperosmolarity without coma, without long-term current use of insulin E11.00 Active 248864059976391 Problem Type 2 diabetes mellitus wit hout complication, without long-term current use of insulin E11.9 Active 327519527 Problem Hypertension I10 Active 9621503 3 Problem Hypertension 401.9 Active 2410298 3 Problem Other abnormal glucose R73.09 Active 254552510 Problem Mixed hyperlipidemia E78.2 Active 115006519 ALLERGIES No Information ENCOUNTERS Encounter Location Date Diagnosis [facility] [address] [place] [address] Oct, [facility] [address] [place] [address] Oct, [place] [address] [address] [place] [id number] [place] [address] Jun, [facility] [address] [place] [address] Jun, [facility] [address] [place] [address] Jun, [facility] [address] [place] [id number] [address] [place] [address] Jun, [facility] [address] [place] [address] Apr, Hypertension I10 and Type 2 diabetes mellitus without complication, without long-term current use of insulin E11.[address] [facility] [address] [place] [address] Apr, Type 2 diabetes mellitus without complication, without long-term current use of insulin E11.9 [facility] [address] [place] [address] Mar, [facility] [address] [place] [address] Jan, [facility] [address] [place] [address] Jan, [facility] [address] [place] [address] Dec, [facility] [address] [place] [address] Nov, Rhinorrhea J34.89 [facility] [address] [place] [address] Nov, Type 2 diabetes mellitus without complication, without long-term current use of insulin E11.9 [facility] [address] [place] [address] Nov, [facility] [address] [place] [address] Nov, [facility] [address] [place] [address] Nov, [facility] [address] [place] [address] Nov, Type 2 diabetes mellitus without complication, without long-term current use of insulin E11.9 [facility] [address] [place] [address] Nov, Well woman exam with routine gynecological exam Z01.419 and Hypertension I10 [facility] [address] [place] [address] Oct, [facility] [address] [place] [address] Oct, Type 2 diabetes mellitus without complication, without long-term current use of insulin E11.9 [facility] [address] [place] [address] Oct, [facility] [address] [place] [address] Oct, [facility] [address] [place] [address] Sep, [facility] [address] [place] [address] August, Hypertension I10 ; Mixed hyperlipidemia E78.2 ; Type 2 diabetes mellitus without complication, without long-term current use of insulin E11.9 and Polycythemia D75.1 [facility] [place] [address] [place] [address] Jul, [facility] [address] [place] [address] Jul, [facility] [place] [address] [place] [address] Jul, [facility] [address] [place] [address] Jul, [facility] [place] [address] [place] [address] Jul, Type 2 diabetes mellitus without complication, without long-term current use of insulin E11.9 [facility] [place] [address] [place] [address] Jul, Type 2 diabetes mellitus without complication, without long-term current use of insulin E11.9 [facility] [address] [address] Jul, Elevated liver enzymes R74.8 and KARELY (acute kidney injury) N17.9 [facility] [place] [address] [place] [address] Jun, Jaundice R17 [facility] [place] [address] [place] [address] Jun, Jaundice R17 [facility] [place] [address] [place] [address] Jun, Cellulitis of right lower extremity L03.115 [facility] [address] [address] Jun, Dental examination Z01.20 [facility] [place] [address] [place] [address] Jun, Hypertension I10 ; Mixed hyperlipidemia E78.2 and Type 2 diabetes mellitus without complication, without long-term current use of insulin E11.9 [facility] [address] [address] Jun, Type 2 diabetes mellitus with hyperosmolarity without coma, without long-term current use of insulin E11.00 [facility] [address] [address] May, [facility] [address] [place] [address] May, Type 2 diabetes mellitus without complication, without long-term current use of insulin E11.9 [facility] [address] [place] [address] Apr, [facility] [address] [place] [address] Apr, Type 2 diabetes mellitus with hyperosmolarity without coma, without long-term current use of insulin E11.00 [facility] [address] [place] [address] Apr, Type 2 diabetes mellitus with hyperosmolarity without coma, without long-term current use of insulin E11.00 [facility] [place] [address] [place] [address] Feb, Low serum erythropoietin level R79.89 and Abnormal CBC R79.89 [facility] [address] [place] [address] Feb, Abnormal CBC R79.89 [facility] [place] [address] [place] [address] Jan, Abnormal CBC R79.89 [facility] [place] [address] [place] [address] Jan, Hypertension I10 [facility] [place] [address] [place] [address] Dec, Hypertension I10 [facility] [place] [address] [place] [address] Dec, Hypertension I10 ; Mixed hyperlipidemia E78.2 and Anemia D64.9 [facility] [address] [address] Nov, [facility] [address] [place] [address] Nov, Hypertension I10 [facility] [address] [place] [address] Nov, Hypertension I10 ; Type 2 diabetes mellitus with hyperosmolarity without coma, without long-term current use of insulin E11.00 and Mixed hyperlipidemia E78.2 [facility] [address] [place] [address] Nov, Hypertension I10 ; Other abnormal glucose R73.09 ; Screening for lipoid disorders Z13.220 and Abnormal CBC R79.89 [facility] [address] [place] [address] Oct, [address] [address] Sep, [address] [address] Jun, Hypertension I10 [address] [address] Apr, [address] [address] Dec, Hypertension 401.[address] [address] Oct, Hypertension 401.9 and Borderline diabetes 790.29 IMMUNIZATIONS No Known Immunizations SOCIAL HISTORY Never Assessed REASON FOR VISIT nurse call PLAN OF CARE VITAL SIGNS MEDICATIONS Unknown Medications RESULTS No Results PROCEDURES No Known procedures INSTRUCTIONS MEDICATIONS ADMINISTERED No Known Medications MEDICAL (GENERAL) HISTORY Type Description Date Medical History Essential (primary) hypertension Medical History Mixed hyperlipidemia Medical History Other abnormal glucose Medical History diabetes Surgical History appendectomy Surgical History section Hospitalization History Surgery(s)/Childbirth(s) only
--- OUTSIDE RECORDS SUMMARY | 2019-10-07 14:36 | XMS REPORT ---
Author Author Wanda ESCALERA Organization [employer] Address Unknown Phone Unavailable Care Team Providers Care Container Crane Operator Name Role Phone ELOISE ESCALERA CP Unavailable Allergies No Known Allergies Problems Problem Type Condition Code Onset Dates Condition Statu s Problem Hypertension 401.9 Active Problem Borderline diabetes 790.29 Active Problem Hypertension I10 Active Problem Abscess of left genital labia 616.4 Active Medications No Known Medications Results No Known Results Summary Purpose [employer] Submission
--- OUTSIDE RECORDS SUMMARY | 2019-10-07 14:36 | XMS REPORT ---
Author Author Wanda ESCALERA Organization [facility] Address [address] [place] [address] Care Team Providers Care Aligning Checker Name Role Phone ESCALERA, ELOISE Unavailable PROBLEMS Type Condition ICD9-CM Code [id number] Code Onset Dates Condition S tatus SNOMED Code Problem Polycythemia D75.1 Active 4368688 03 Problem Abscess of left genital labia 616.4 Active 776627814 Problem Borderline diabetes 790.29 Active 4977190 Problem Type 2 diabetes mellitus wit h hyperosmolarity without coma, without long-term current use of insulin E11.00 Active 831120693798381 Problem Type 2 diabetes mellitus wit hout complication, without long-term current use of insulin E11.9 Active 332130455 Problem Hypertension I10 Active 8515753 3 Problem Hypertension 401.9 Active 4077373 3 Problem Other abnormal glucose R73.09 Active 113810847 Problem Mixed hyperlipidemia E78.2 Active 353248278 ALLERGIES No Information ENCOUNTERS Encounter Location Date Diagnosis [facility] [address] [place] [address] Nov, 18 [facility] [address] [place] [address] Oct, 18 [facility] [address] [place] [address] Oct, 18 [facility] [address] [place] [address] Oct, 18 [facility] [address] [place] [address] Oct, 18 [facility] [address] [facility] [id number] [place] [address] Jun, [facility] [address] [place] [address] Jun, 18 [facility] [address] [place] [address] 15 Jun, 18 [facility] [address] [facility] [id number] [address] [place] [address] Jun, [facility] [address] [address] Apr, 18 Hypertension I10 and Type 2 diabetes mellitus without complication, without long-term current use of insulin E11.9 [facility] [place] [address] [place] [address] Apr, 18 Type 2 diabetes mellitus without complication, without long-term current use of insulin E11.9 [facility] [address] [address] 28 Mar, 17 [facility] [address] [address] 31 Jan, 17 [facility] [address] [address] Jan, 17 [facility] [address] [address] Dec, 17 [facility] [address] [address] 30 Nov, 17 Rhinorrhea J34.89 [facility] [address] [address] Nov, 17 Type 2 diabetes mellitus without complication, without long-term current use of insulin E11.[address] [address] 18 Nov, 17 [facility] [address] [address] 16 Nov, 17 [facility] [address] [address] 16 Nov, 17 [facility] [address] [address] 15 Nov, 17 Type 2 diabetes mellitus without complication, without long-term current use of insulin E11.9 [facility] [address] [address] 08 Nov, 17 Well woman exam with routine gynecological exam Z01.419 and Hypertension I10 [facility] [address] [address] Oct, 17 [facility] [address] [address] Oct, 17 Type 2 diabetes mellitus without complication, without long-term current use of insulin E11.9 [facility] [address] [address] Oct, 17 [facility] [address] [address] Oct, 17 [facility] [address] [address] Sep, 17 [facility] [address] [address] August, 17 Hypertension I10 ; Mixed hyperlipidemia E78.2 ; Type 2 diabetes mellitus without complication, without long-term current use of insulin E11.9 and Polycythemia D75.1 [facility] [address] [address] Jul, 17 [facility] [address] [address] Jul, 17 [facility] [address] [address] Jul, 17 [facility] [address] [address] Jul, 17 [facility] [address] [address] Jul, 17 Type 2 diabetes mellitus without complication, without long-term current use of insulin E11.9 [facility] [address] [address] Jul, 17 Type 2 diabetes mellitus without complication, without long-term current use of insulin E11.9 [facility] [address] [address] Jul, 17 Elevated liver enzymes R74.8 and KARELY (acute kidney injury) N17.9 [facility] [address] [address] Jun, 17 Jaundice R17 [facility] [address] [address] Jun, 17 Jaundice R17 [facility] [address] [address] Jun, 17 Cellulitis of right lower extremity L03.[address] [address] Jun, 17 Dental examination Z01.[address] [address] Jun, 17 Hypertension I10 ; Mixed hyperlipidemia E78.2 and Type 2 diabetes mellitus without complication, without long-term current use of insulin E11.[address] [address] Jun, 17 Type 2 diabetes mellitus with hyperosmolarity without coma, without long-term current use of insulin E11.[address] [address] May, [address] [address] May, 17 Type 2 diabetes mellitus without complication, without long-term current use of insulin E11.[address] [address] Apr, [address] [address] Apr, 17 Type 2 diabetes mellitus with hyperosmolarity without coma, without long-term current use of insulin E11.[address] [address] Apr, 17 Type 2 diabetes mellitus with hyperosmolarity without coma, without long-term current use of insulin E11.[address] [address] Feb, 16 Low serum erythropoietin level R79.89 and Abnormal CBC R79.[address] [address] Feb, 16 Abnormal CBC R79.[address] [address] Jan, 16 Abnormal CBC R79.[address] [address] Jan, 16 Hypertension I10 [address] [address] Dec, 16 Hypertension I10 [address] [address] Dec, 16 Hypertension I10 ; Mixed hyperlipidemia E78.2 and Anemia D64.[address] [address] Nov, [address] [address] Nov, 16 Hypertension I10 [address] [address] Nov, 16 Hypertension I10 ; Type 2 diabetes mellitus with hyperosmolarity without coma, without long-term current use of insulin E11.00 and Mixed hyperlipidemia E78.[address] [address] Nov, 16 Hypertension I10 ; Other abnormal glucose R73.09 ; Screening for lipoid disorders Z13.220 and Abnormal CBC R79.[address] [address] Oct, [address] [address] Sep, [address] [address] Jun, 16 Hypertension I10 [address] [address] Apr, [address] [address] Dec, 15 Hypertension 401.[address] [address] Oct, 15 Hypertension 401.9 and Borderline diabetes 790.29 IMMUNIZATIONS No Known Immunizations SOCIAL HISTORY Never Assessed REASON FOR VISIT PLAN OF CARE VITAL SIGNS MEDICATIONS Medication Instructions Dosage Frequency Start Date End Date Duration S tatus Hydroxyurea 500 MG Activ e RESULTS No Results PROCEDURES No Known procedures INSTRUCTIONS MEDICATIONS ADMINISTERED No Known Medications MEDICAL (GENERAL) HISTORY Type Description Date Medical History Essential (primary) hypertension Medical History Mixed hyperlipidemia Medical History Other abnormal glucose Medical History diabetes Surgical History appendectomy Surgical History section Hospitalization History Surgery(s)/Childbirth(s) only
--- OUTSIDE RECORDS SUMMARY | 2019-10-07 14:36 | XMS REPORT ---
Author Author Wanda ESCALERA Organization [facility] [address] Address [address] [place] [address] Care Team Providers Care Acid Operator Name Role Phone ELOISE ESCALERA Unavailable PROBLEMS Type Condition ICD9-CM Code [id number] Code Onset Dates Condition S tatus SNOMED Code Problem Polycythemia D75.1 Active 0586326 03 Problem Abscess of left genital labia 616.4 Active 374143159 Problem Borderline diabetes 790.29 Active 4386519 Problem Type 2 diabetes mellitus wit h hyperosmolarity without coma, without long-term current use of insulin E11.00 Active 332676825296214 Problem Type 2 diabetes mellitus wit hout complication, without long-term current use of insulin E11.9 Active 886807753 Problem Hypertension I10 Active 2974030 3 Problem Hypertension 401.9 Active 7473060 3 Problem Other abnormal glucose R73.09 Active 021911123 Problem Mixed hyperlipidemia E78.2 Active 742992131 ALLERGIES No Information ENCOUNTERS Encounter Location Date Diagnosis [facility] [address] [place] [address] Oct, [facility] [address] [place] [address] Oct, [place] [address] [address] [place] [id number] [address] [place] [address] Jun, [facility] [address] [place] [address] Jun, [facility] [address] [place] [address] Jun, [facility] [address] [place], [place] [id number] [address] [place] [address] Jun, [facility] [address] [place] [address] Apr, Hypertension I10 and Type 2 diabetes mellitus without complication, without long-term current use of insulin E11.9 [facility] [address] [facility] [address] Apr, Type 2 diabetes mellitus without complication, without long-term current use of insulin E11.9 [facility] [address] [place] [address] Mar, [facility] [address] [place] [address] Jan, [facility] [address] [place] [address] Jan, [facility] [address] [place] [address] Dec, [facility] [address] [place] [address] Nov, Rhinorrhea J34.89 [facility] [address] [place] [address] Nov, Type 2 diabetes mellitus without complication, without long-term current use of insulin E11.9 [facility] [address] [place] [address] Nov, [facility] [address] [place] [address] Nov, [facility] [address] [place] [address] Nov, [facility] [address] [place] [address] Nov, Type 2 diabetes mellitus without complication, without long-term current use of insulin E11.9 [facility] [address] [place] [address] Nov, Well woman exam with routine gynecological exam Z01.419 and Hypertension I10 [facility] [address] [place] [address] Oct, [facility] [address] [place] [address] Oct, Type 2 diabetes mellitus without complication, without long-term current use of insulin E11.9 [facility] [address] [place] [address] Oct, [facility] [address] [place] [address] Oct, [facility] [address] [place] [address] Sep, [facility] [address] [place] [address] August, Hypertension I10 ; Mixed hyperlipidemia E78.2 ; Type 2 diabetes mellitus without complication, without long-term current use of insulin E11.9 and Polycythemia D75.1 [facility] [place] [address] [place] [address] Jul, [facility] [address] [place] [address] Jul, [facility] [place] [address] [place] [address] Jul, [facility] [address] [place] [address] Jul, [facility] [place] [address] [place] [address] Jul, Type 2 diabetes mellitus without complication, without long-term current use of insulin E11.9 [facility] [place] [address] [place] [address] Jul, Type 2 diabetes mellitus without complication, without long-term current use of insulin E11.9 [facility] [address] [address] Jul, Elevated liver enzymes R74.8 and KARELY (acute kidney injury) N17.9 [facility] [place] [address] [place] [address] Jun, Jaundice R17 [facility] [place] [address] [place] [address] Jun, Jaundice R17 [facility] [place] [address] [place] [address] Jun, Cellulitis of right lower extremity L03.115 [facility] [address] [address] Jun, Dental examination Z01.20 [facility] [place] [address] [place] [address] Jun, Hypertension I10 ; Mixed hyperlipidemia E78.2 and Type 2 diabetes mellitus without complication, without long-term current use of insulin E11.9 [facility] [address] [address] Jun, Type 2 diabetes mellitus with hyperosmolarity without coma, without long-term current use of insulin E11.00 [facility] [address] [address] May, [facility] [address] [place] [address] May, Type 2 diabetes mellitus without complication, without long-term current use of insulin E11.9 [facility] [address] [place] [address] Apr, [facility] [address] [place] [address] Apr, Type 2 diabetes mellitus with hyperosmolarity without coma, without long-term current use of insulin E11.00 [facility] [address] [place] [address] Apr, Type 2 diabetes mellitus with hyperosmolarity without coma, without long-term current use of insulin E11.00 [facility] [place] [address] [place] [address] Feb, Low serum erythropoietin level R79.89 and Abnormal CBC R79.89 [facility] [address] [place] [address] Feb, Abnormal CBC R79.89 [facility] [place] [address] [place] [address] Jan, Abnormal CBC R79.89 [facility] [place] [address] [place] [address] Jan, Hypertension I10 [facility] [place] [address] [place] [address] Dec, Hypertension I10 [facility] [place] [address] [place] [address] Dec, Hypertension I10 ; Mixed hyperlipidemia E78.2 and Anemia D64.9 [facility] [address] [address] Nov, [facility] [address] [place] [address] Nov, Hypertension I10 [facility] [address] [place] [address] Nov, Hypertension I10 ; Type 2 diabetes mellitus with hyperosmolarity without coma, without long-term current use of insulin E11.00 and Mixed hyperlipidemia E78.2 [facility] [address] [place] [address] Nov, Hypertension I10 ; Other abnormal glucose R73.09 ; Screening for lipoid disorders Z13.220 and Abnormal CBC R79.89 [facility] [address] [place] [address] Oct, [address] [address] Sep, [address] [address] Jun, Hypertension I10 [address] [address] Apr, [address] [address] Dec, Hypertension 401.[address] [address] Oct, Hypertension 401.9 and Borderline diabetes 790.29 IMMUNIZATIONS No Known Immunizations SOCIAL HISTORY Never Assessed REASON FOR VISIT Requests return call PLAN OF CARE VITAL SIGNS MEDICATIONS Unknown Medications RESULTS No Results PROCEDURES No Known procedures INSTRUCTIONS MEDICATIONS ADMINISTERED No Known Medications MEDICAL (GENERAL) HISTORY Type Description Date Medical History Essential (primary) hypertension Medical History Mixed hyperlipidemia Medical History Other abnormal glucose Medical History diabetes Surgical History appendectomy Surgical History section Hospitalization History Surgery(s)/Childbirth(s) only
--- OUTSIDE RECORDS SUMMARY | 2019-10-07 14:36 | XMS REPORT ---
Author Author Wanda ESCALERA [facility] Address [address] [place] [address] Care Team Providers Care Student Affairs Dean Name Role Phone ESCALERA, ELOISE Unavailable PROBLEMS Type Condition ICD9-CM Code OBR56-EY Code Onset Dates Condition S tatus SNOMED Code Problem Polycythemia D75.1 Active 7574952 03 Problem Abscess of left genital labia 616.4 Active 787186871 Problem Borderline diabetes 790.29 Active 2339910 Problem Type 2 diabetes mellitus wit h hyperosmolarity without coma, without long-term current use of insulin E11.00 Active 398122620912966 Problem Type 2 diabetes mellitus wit hout complication, without long-term current use of insulin E11.9 Active 022827844 Problem Hypertension I10 Active 0054764 3 Problem Hypertension 401.9 Active 5473011 3 Problem Other abnormal glucose R73.09 Active 665426874 Problem Mixed hyperlipidemia E78.2 Active 883617227 ALLERGIES No Information ENCOUNTERS Encounter Location Date Diagnosis [facility] [address] [place] [address] Nov, 18 [facility] [address] [place] [address] Oct, 18 [facility] [address] [place] [address] Oct, 18 [facility] [address] [place] [phone] Oct, 18 [facility] [address] [place] [address] Oct, 18 [facility] [address] [place] [address] [id number] [address], [place] [address] Jun, [facility] [address] [place] [address] Jun, 18 [facility] [address] [place] [address] 15 Jun, 18 [facility] [address] [facility] [id number] [address] [place] [address] 07 Jun, 2017 [facility] [place] [address] [place] [address] Apr, 18 Hypertension I10 and Type 2 diabetes mellitus without complication, without long-term current use of insulin E11.9 [facility] [place] [address] [place] [address] Apr, 18 Type 2 diabetes mellitus without complication, without long-term current use of insulin E11.9 [facility] [place] [address] [place] [address] 28 Mar, 17 [facility] [place] [address] [place] [address] 31 Jan, 17 [facility] [place] [address] [place] [address] 09 Jan, 17 [facility] [place] [address] [place] [address] Dec, 17 [facility] [place] [address] [place] [address] 30 Nov, 17 Rhinorrhea J34.89 [facility] [place] [address] [place] [address] 23 Nov, 17 Type 2 diabetes mellitus without complication, without long-term current use of insulin E11.9 [facility] [place] [address] [place] [address] 18 Nov, 17 [facility] [place] [address] [place] [address] 16 Nov, 17 [facility] [place] [address] [place] [address] 16 Nov, 17 [facility] [place] [address] [place] [address] 15 Nov, 17 Type 2 diabetes mellitus without complication, without long-term current use of insulin E11.9 [facility] [place] [address] [place] [address] 08 Nov, 17 Well woman exam with routine gynecological exam Z01.419 and Hypertension I10 [facility] [place] [address] [place] [address] Oct, 17 [facility] [place] [address] [place] [address] Oct, 17 Type 2 diabetes mellitus without complication, without long-term current use of insulin E11.9 [facility] [place] [address] [place] [address] Oct, 17 [facility] [place] [address] [place] [address] Oct, 17 [facility] [place] [address] [place] [phone] Sep, 17 [facility] [place] [address] [place] [address] August, 17 Hypertension I10 ; Mixed hyperlipidemia E78.2 ; Type 2 diabetes mellitus without complication, without long-term current use of insulin E11.9 and Polycythemia D75.1 [facility] [place] [address] [place] [address] Jul, 17 [facility] [place] [address] [place] [address] Jul, 17 [facility] [place] [address] [place] [address] Jul, 17 [facility] [place] [address] [place] [address] Jul, 17 [facility] [place] [address] [place] [address] Jul, 17 Type 2 diabetes mellitus without complication, without long-term current use of insulin E11.9 [facility] [place] [address] [place] [address] Jul, 17 Type 2 diabetes mellitus without complication, without long-term current use of insulin E11.9 [facility] [place] [address] [place] [address] Jul, 17 Elevated liver enzymes R74.8 and KARELY (acute kidney injury) N17.9 [facility] [place] [address] [place] [address] Jun, 17 Jaundice R17 [facility] [place] [address] [place] [address] Jun, 17 Jaundice R17 [facility] [place] [address] [place] [address] Jun, 17 Cellulitis of right lower extremity L03.115 [facility] [address] [address] Jun, 17 Dental examination Z01.20 [facility] [place] [address] [place] [address] Jun, 17 Hypertension I10 ; Mixed hyperlipidemia E78.2 and Type 2 diabetes mellitus without complication, without long-term current use of insulin E11.9 [facility] [address] [address] Jun, 17 Type 2 diabetes mellitus with hyperosmolarity without coma, without long-term current use of insulin E11.[address] [facility] [address] [address] May, 17 [facility] [address] [address] May, 17 Type 2 diabetes mellitus without complication, without long-term current use of insulin E11.9 [facility] [address] [address] Apr, 17 [facility] [address] [address] Apr, 17 Type 2 diabetes mellitus with hyperosmolarity without coma, without long-term current use of insulin E11.00 [facility] [address] [place] [address] Apr, 17 Type 2 diabetes mellitus with hyperosmolarity without coma, without long-term current use of insulin E11.00 [facility] [address] [place] [address] Feb, 16 Low serum erythropoietin level R79.89 and Abnormal CBC R79.89 [facility] [address] [address] Feb, 16 Abnormal CBC R79.[address] [facility] [address] [address] Jan, 16 Abnormal CBC R79.89 [facility] [address] [address] Jan, 16 Hypertension I10 [facility] [address] [address] Dec, 16 [facility]pertension I10 [facility] [address] [address] Dec, 16 Hypertension I10 ; Mixed hyperlipidemia E78.2 and Anemia D64.9 [facility] [address] [address] Nov, 16 [facility] [address] [address] Nov, 16 Hypertension I10 [facility] [address] [address] Nov, 16 Hypertension I10 ; Type 2 diabetes mellitus with hyperosmolarity without coma, without long- term current use of insulin E11.00 and Mixed hyperlipidemia E78.2 [facility] [address] [address] Nov, 16 Hypertension I10 ; Other abnormal glucose R73.09 ; Screening for lipoid disorders Z13.220 and Abnormal CBC R79.89 [facility] [address] [address] Oct, 16 [facility] [address] [address] Sep, [address] [facility] [address] [address] Jun, 16 Hypertension I10 [facility] [address] [address] Apr, [address] [place] [address] Dec, 15 Hypertension 401.9 [facility] [address] [address] 20 Elijah, 20 15 Hypertension 401.9 and [...]
--- OUTSIDE RECORDS SUMMARY | 2019-10-07 14:36 | XMS REPORT ---
Author Author Wanda ESCALERA Organization [facility] Address [address] [place] [address] Care Team Providers Care Jewelry Appraiser Name Role Phone ESCALERA, ELOISE Unavailable PROBLEMS Type Condition ICD9-CM Code PVW24-BL Code Onset Dates Condition S tatus SNOMED Code Assessment Hypertension I10 Dec, Active 383 17564 Assessment Anemia D64.9 Dec, Active 400282 000 Problem Other abnormal glucose R73.09 Active 160692163 Problem Mixed hyperlipidemia E78.2 Active 466238041 Problem Borderline diabetes 790.29 Active 8291944 Problem Abscess of left genital labia 616.4 Active 491026515 Problem Hypertension I10 Active 7055554 3 Problem Hypertension 401.9 Active 4173559 3 ALLERGIES Substance Reaction Event Type Date Status Keflex numbness in extremities Drug Allergy Dec, Acti ve SOCIAL HISTORY No smoking Hx information available PLAN OF CARE VITAL SIGNS Height 5'4" in 2015-12-14 Weight 222.6 lbs 2015-12-14 Heart Rate 68 bpm 2015-12-14 Respiratory Rate 18 2015-12-14 BMI 38.21 kg/m2 2015-12-14 Blood pressure systolic 140 mmHg 2015-12-14 Blood pressure diastolic 90 mmHg 2015-12-14 MEDICATIONS Medication Instructions Dosage Frequency Start Date End Date Duration S tatus Lovastatin 40 MG Orally Once a day 1 tablet with a meal 24h Nov, Active Lisinopril 40 MG 1 tablet Once a day Orally daily Active Metformin HCl 1000 MG Orally Twice a day TAKE ONE TABLET TWICE D AILY WITH FOOD. 12h daily Active RESULTS Name Result Date Reference Range VITAMIN B12 2015-12-14 Vitamin B12 932 211-946 CBC 2015-12-14 WBC 12.4 3.4-10.8 RBC 5.59 3.77-5.28 Hemoglobin 18.1 11.1-15.9 Hematocrit 56.0 34.0-46.6 MCV 100 79-97 MCH 32.4 26.6-33.0 MCHC 32.3 31.5-35.7 RDW 15.8 12.3-15.4 Platelets 269 150-379 Neutrophils 77 Lymphs 18 Monocytes 4 Eos 1 Basos 0 Neutrophils (Absolute) 9.4 1.4-7.0 Lymphs (Absolute) 2.2 0.7-3.1 Monocytes(Absolute) 0.5 0.1-0.9 Eos (Absolute) 0.2 0.0-0.4 Baso (Absolute) 0.1 0.0-0.2 Immature Granulocytes 0 Immature Grans (Abs) 0.0 0.0-0.1 LIPID PANEL 2015-12-14 Cholesterol, Total 136 100-199 Triglycerides 194 0-149 HDL Cholesterol 35 >39 VLDL Cholesterol Alphonse 39 5-40 LDL Cholesterol Calc 62 0-99 PROCEDURES Procedure Date Ordered Related Diagnosis Body Site COMPLETE CBC W/AUTO DIFF WBC Dec 14, 2015 LIPID PANEL Dec 14, 2015 VENIPUNCT, ROUTINE* Dec 14, 2015 VITAMIN B-12 Dec 14, 2015 Office Visit, Est Pt., Level 3 Dec 14, 2015 IMMUNIZATIONS No Known Immunizations
--- OUTSIDE RECORDS SUMMARY | 2019-10-07 14:36 | XMS REPORT ---
Author Author Wanda ESCALERA Organization [facility] Address [address] [place] [address] Care Team Providers Care Associate Chief Nurse Name Role Phone JW ELOISE Unavailable PROBLEMS Type Condition ICD9-CM Code ZFN54-IO Code Onset Dates Condition S tatus SNOMED Code Problem Polycythemia D75.1 Active 7672645 03 Problem Abscess of left genital labia 616.4 Active 942384449 Problem Borderline diabetes 790.29 Active 2829954 Problem Type 2 diabetes mellitus wit h hyperosmolarity without coma, without long-term current use of insulin E11.00 Active 175257558523264 Problem Type 2 diabetes mellitus wit hout complication, without long-term current use of insulin E11.9 Active 074332959 Problem Hypertension I10 Active 6854044 3 Problem Hypertension 401.9 Active 0718272 3 Problem Other abnormal glucose R73.09 Active 284584396 Problem Mixed hyperlipidemia E78.2 Active 241897178 ALLERGIES No Information ENCOUNTERS Encounter Location Date Diagnosis [facility] [place] [address] [facility] [address] [id number] [place] [address] Oct, [facility] [place] [address] [id number] [place] [phone] Oct, [facility] [place] [address] [facility] [id number] [address] [place] [phone] Jun, [facility] [place] [address] [id number] [place] [address]29[address] Jun, [facility] [place] [address] [place] [address] [address] [id number] [place] [phone] Jun, [facility] [place] [address] [facility] [id number] [address] [place] [address] Jun, [facility] [address] [facility] [address] [id number] [place] [phone] Apr, Hypertension I10 and Type 2 diabetes mellitus without complication, without long-term current use of insulin E11.9 [facility] [place] [address] [facility] [address] [id number] [place] [address] Apr, Type 2 diabetes mellitus without complication, without long-term current use of insulin E11.9 [facility] [place] [address] [facility] [address] [id number] [place] [address]783 Mar, [facility] [place] [address] [facility] [address] [id number] [place] [address]557 Jan, [facility] [place] [address] [facility] [address] [id number] [place] [address] Jan, [facility] [place] [address] [facility] [address] [id number] [place] [address] 390842 Dec, [facility] [place] [address] [facility] [address] [id number] [place] [address]455 Nov, Rhinorrhea J34.89 [facility] [place] [address] [facility] [address] [id number] [place] [address] 522644 Nov, Type 2 diabetes mellitus without complication, without long-term current use of insulin E11.9 [facility] [place] [address] [facility] [address] [id number] [place] [address] 287272 Nov, [facility] [place] [address] [facility] [address] [id number] [place] [address] 9429[address] Nov, [facility] [place] [address] [facility] [address] [id number] [place] [address] 294498 Nov, [facility] [place] [address] [facility] [address] [id number] [place] [address] 165557 Nov, Type 2 diabetes mellitus without complication, without long-term current use of insulin E11.9 [facility] [place] [address] [facility] [address] [id number] [place] [address] 785659 Nov, Well woman exam with routine gynecological exam Z01.419 and Hypertension I10 [facility] [place] [address] [facility] [address] [id number] [place] [address] 285876 Oct, [facility] [place] [address] [facility] [address] [id number] [place] [address] 433291 Oct, Type 2 diabetes mellitus without complication, without long-term current use of insulin E11.9 [facility] [place] [address] [facility] [address] [id number] [place] [address] 501138 Oct, [facility] [place] [address] [facility] [address] [id number] [place] [address] 132415 Oct, [facility] [place] [address] [facility] [address] [id number] [place] [address] 677903 Sep, [facility] [place] [address] [facility] [address] [id number] [place] [address] 573730 August, Hypertension I10 ; Mixed hyperlipidemia E78.2 ; Type 2 diabetes mellitus without complication, without long-term current use of insulin E11.9 and Polycythemia D75.1 [facility] [place] [address] [facility] [address] [id number] [place] [address] 711460 Jul, [facility] [place] [address] [facility] [address] [id number] [place] [address] 569192 Jul, [facility] [place] [address] [facility] [address] [id number] [place] [address] 740238 Jul, [facility] [place] [address] [facility] [address] [id number] [place] [address] 412708 Jul, [facility] [place] [address] [facility] [address] [id number] [place] [address] 911275 Jul, Type 2 diabetes mellitus without complication, without long-term current use of insulin E11.9 [facility] [place] [address] [place] [address] [address] [id number] [place] [address] 145623 Jul, Type 2 diabetes mellitus without complication, without long-term current use of insulin E11.9 [facility] [place] [address] [facility] [address] [id number] [place] [address] 893438 Jul, Elevated liver enzymes R74.8 and KARELY (acute kidney injury) N17.9 [facility] [place] [address] [facility] [address] [id number] [place] [address] 010187 Jun, Jaundice R17 [facility] [place] [address] [facility] [address] [id number] [place] [address] 282928 Jun, Jaundice R17 [facility] [place] [address] [facility] [address] [id number] [place] [address] 391634 Jun, Cellulitis of right lower extremity L03.115 [facility] [place] [address] [facility] [address] [id number] [place] [address] 977178 Jun, Dental examination Z01.20 [facility] [place] [address] [facility] [address] [address] [id number] [place] [address] 187142 Jun, Hypertension I10 ; Mixed hyperlipidemia E78.2 and Type 2 diabetes mellitus without complication, without long-term current use of insulin E11.9 [facility] [place] [address] [place] [address] C [id number] [place] [address] 168984 Jun, Type 2 diabetes mellitus with hyperosmolarity without coma, without long-term current use of insulin E11.00 [facility] [place] [address] [place] [address] C [id number] [place] [address] 075243 May, [facility] [place] [address] [place] [address] C [id number] [place] [address] 559533 May, Type 2 diabetes mellitus without complication, without long-term current use of insulin E11.9 [facility] [place] [address] [place] [address] C [id number] [place] [address] 226383 Apr, [facility] [place] [address] [place] [address] C [id number] [place] [address] 984478 Apr, Type 2 diabetes mellitus with hyperosmolarity without coma, without long-term current use of insulin E11.00 [facility] [place] [address] [place] [address] C [id number] [place] [address] 973075 Apr, Type 2 diabetes mellitus with hyperosmolarity without coma, without long-term current use of insulin E11.00 [facility] [place] [address] [place] [address] C [id number] [place] [address] 651861 Feb, Low serum erythropoietin level R79.89 and Abnormal CBC R79.89 [facility] [place] [address] [facility] [address] [id number] [place] [address] 133658 Feb, Abnormal CBC R79.89 [facility] [place] [address] [place] [address] C [id number] [place] [address] 300008 Jan, Abnormal CBC R79.89 [facility] [place] [address] [facility] [address] [id number] [place] [address] 599191 Jan, Hypertension I10 [facility] [place] [address] [facility] [address] [id number] [place] [address] 921601 Dec, Hypertension I10 [facility] [place] [address] [facility] [address] [id number] [place] [address] 181740 Dec, Hypertension I10 ; Mixed hyperlipidemia E78.2 and Anemia D64.9 [facility] [place] [address] [facility] [address] [id number] [place] [address] 908395 Nov, [facility] [place] [address] [facility] [address] [id number] [place] [address] 779747 Nov, Hypertension I10 [facility] [place] [address] [facility] [address] [id number] [place] [address] 865898 Nov, Hypertension I10 ; Type 2 diabetes mellitus with hyperosmolarity without coma, without long-term current use of insulin E11.00 and Mixed hyperlipidemia E78.2 [facility] [place] [address] [facility] [address] [id number] [place] [address] 478098 Nov, Hypertension I10 ; Other abnormal glucose R73.09 ; Screening for lipoid disorders Z13.220 and Abnormal CBC R79.89 [facility] [place] [address] [facility] [address] [id number] [place] [address] 197827 Oct, [facility] [place] [address] [facility] [address] [id number] [place] [address] 456947 Sep, [facility] [place] [address] [facility] [address] [id number] [place] [address] 720617 Jun, Hypertension I10 [facility] [place] [address] [facility] [address] [id number] [place] [address] 443709 Apr, [facility] [place] [address] [facility] [address] [id number] [place] [address] 229828 30 Dec, 2014 Hypertension 401.9 [facility] [place] [address] [facility] [address] [id number] [place] [address] 156504 Oct, Hypertension 401.9 and Borderline diabetes 790.29 IMMUNIZATIONS No Known Immunizations SOCIAL HISTORY Never Assessed REASON FOR VISIT med refill PLAN OF CARE VITAL SIGNS MEDICATIONS Unknown Medications RESULTS No Results PROCEDURES No Known procedures INSTRUCTIONS MEDICATIONS ADMINISTERED No Known Medications MEDICAL (GENERAL) HISTORY Type Description Date Medical History Essential (primary) hypertension Medical History Mixed hyperlipidemia Medical History Other abnormal glucose Medical History diabetes Surgical History appendectomy Surgical History section Hospitalization History Surgery(s)/Childbirth(s) only
--- OUTSIDE RECORDS SUMMARY | 2019-10-07 14:36 | XMS REPORT ---
Author Author Wanda ESACLERA Organization [facility] Address [address] [place] [address] Care Team Providers Care Senior Client Advisor Name Role Phone ELOISE ESCALERA Unavailable PROBLEMS Type Condition ICD9-CM Code XRB80-HQ Code Onset Dates Condition S tatus SNOMED Code Problem Polycythemia D75.1 Active 2470493 03 Problem Abscess of left genital labia 616.4 Active 380095116 Problem Borderline diabetes 790.29 Active 2003636 Problem Type 2 diabetes mellitus wit h hyperosmolarity without coma, without long-term current use of insulin E11.00 Active 415452683607766 Problem Type 2 diabetes mellitus wit hout complication, without long-term current use of insulin E11.9 Active 101071396 Problem Hypertension I10 Active 0177291 3 Problem Hypertension 401.9 Active 2218813 3 Problem Other abnormal glucose R73.09 Active 430528561 Problem Mixed hyperlipidemia E78.2 Active 802124726 ALLERGIES Substance Reaction Event Type Date Status Keflex numbness in extremities Drug Allergy Jun, Acti ve SOCIAL HISTORY Never Assessed PLAN OF CARE Activity Details Follow Up 1 Week, prn, 3 Months Reason :with BP readings, DM visit VITAL SIGNS Height 5'4" in 2016-06-10 Weight 224.0 lbs 2016-06-10 Temperature 98.1 degrees Fahrenheit 2016-06-10 Heart Rate 80 bpm 2016-06-10 Respiratory Rate 20 2016-06-10 BMI 38.45 kg/m2 2016-06-10 Blood pressure systolic 88 mmHg 2016-06-10 Blood pressure diastolic 62 mmHg 2016-06-10 MEDICATIONS Medication Instructions Dosage Frequency Start Date End Date Duration S tatus Hydroxyurea 500 MG Activ e Lisinopril 40 MG TAKE 1 TABLET BY MOUTH DAILY 30 Active MetFORMIN HCl ER 500 MG TAKE 2 TABLETS TWICE DAILY WITH FOOD 12h Active Hydrochlorothiazide 25 MG 1 tablet Once a day Orally Active Lovastatin 40 MG TAKE 1 TABLET BY MOUTH DAILY WITH A MEAL 30 Active Aspirin Adult Low Dose 81 MG Orally Once a day 1 tablet 24h Active RESULTS No Results PROCEDURES No Known procedures IMMUNIZATIONS No Known Immunizations MEDICAL (GENERAL) HISTORY Type Description Date Medical History Essential (primary) hypertension Medical History Mixed hyperlipidemia Medical History Other abnormal glucose Medical History diabetes Surgical History appendectomy Surgical History section Hospitalization History Surgery(s)/Childbirth(s) only
--- OUTSIDE RECORDS SUMMARY | 2019-10-07 14:36 | XMS REPORT ---
Author Author Wanda ESCALERA Organization [facility] [address] Address [address] [place] [address] Care Team Providers Care Communication Analyst Name Role Phone ELOISE ESCALERA Unavailable PROBLEMS Type Condition ICD9-CM Code AIR03-MB Code Onset Dates Condition S tatus SNOMED Code Problem Polycythemia D75.1 Active 0570060 03 Problem Abscess of left genital labia 616.4 Active 717111811 Problem Borderline diabetes 790.29 Active 2671864 Problem Type 2 diabetes mellitus wit h hyperosmolarity without coma, without long-term current use of insulin E11.00 Active 586419904468088 Problem Type 2 diabetes mellitus wit hout complication, without long-term current use of insulin E11.9 Active 488416067 Problem Hypertension I10 Active 5742516 3 Problem Hypertension 401.9 Active 2268221 3 Problem Other abnormal glucose R73.09 Active 964650702 Problem Mixed hyperlipidemia E78.2 Active 301274002 ALLERGIES No Information ENCOUNTERS Encounter Location Date Diagnosis [facility] [address] [place] [address] Oct, [facility] [address] [place] [address] Oct, [facility] [address] [place] [id number] [address] [place] [address] Jun, [facility] [address] [place] [address] Jun, [facility] [address] [place] [address] Jun, [facility] [address] [place] [id number] [address] [place] [address] Jun, [facility] [address] [place] [address] Apr, Hypertension I10 and Type 2 diabetes mellitus without complication, without long-term current use of insulin E11.9 [facility] [address] [facility] [place] [address] Apr, Type 2 diabetes mellitus without complication, without long-term current use of insulin E11.9 [facility] [place] [address] [facility] [place] [address] Mar, [facility] [place] [address] [facility] [place] [address] Jan, [facility] [place] [address] [facility] [place] [address] Jan, [facility] [place] [address] [facility] [place] [address] Dec, [facility] [place] [address] [facility] [place] [address] Nov, Rhinorrhea J34.89 [facility] [place] [address] [facility] [place] [address] Nov, Type 2 diabetes mellitus without complication, without long-term current use of insulin E11.9 [facility] [place] [address] [facility] [place] [address] Nov, [facility] [place] [address] [facility] [place] [address] Nov, [facility] [place] [address] [facility] [place] [address] Nov, [facility] [place] [address] [facility] [place] [address] Nov, Type 2 diabetes mellitus without complication, without long-term current use of insulin E11.9 [facility] [place] [address] [facility] [place] [address] Nov, Well woman exam with routine gynecological exam Z01.419 and Hypertension I10 [facility] [place] [address] [facility] [place] [address] Oct, [facility] [place] [address] [facility] [place] [address] Oct, Type 2 diabetes mellitus without complication, without long-term current use of insulin E11.9 [facility] [place] [address] [facility] [place] [address] Oct, [facility] [place] [address] [facility] [place] [address] Oct, [facility] [place] [address] [facility] [place] [address] Sep, [facility] [place] [address] [facility] [place] [address] August, Hypertension I10 ; Mixed hyperlipidemia E78.2 ; Type 2 diabetes mellitus without complication, without long-term current use of insulin E11.9 and Polycythemia D75.1 [facility] [place] [address] [place] [address] Jul, [facility] [place] [address] [place] [address] Jul, [facility] [place] [address] [place] [address] Jul, [facility] [place] [address] [place] [address] Jul, [facility] [place] [address] [place] [address] Jul, Type 2 diabetes mellitus without complication, without long-term current use of insulin E11.9 [facility] [place] [address] [place] [address] Jul, Type 2 diabetes mellitus without complication, without long-term current use of insulin E11.9 [facility] [address] [address] Jul, Elevated liver enzymes R74.8 and KARELY (acute kidney injury) N17.9 [facility] [place] [address] [place] [address] Jun, Jaundice R17 [facility] [place] [address] [place] [address] Jun, Jaundice R17 [facility] [place] [address] [place] [address] Jun, Cellulitis of right lower extremity L03.115 [facility] [address] [address] Jun, Dental examination Z01.20 [facility] [place] [address] [place] [address] Jun, Hypertension I10 ; Mixed hyperlipidemia E78.2 and Type 2 diabetes mellitus without complication, without long-term current use of insulin E11.9 [facility] [address] [address] Jun, Type 2 diabetes mellitus with hyperosmolarity without coma, without long-term current use of insulin E11.00 [facility] [address] [address] May, [facility] [place] [address] [place] [address] May, Type 2 diabetes mellitus without complication, without long-term current use of insulin E11.9 [facility] [place] [address] [place] [address] Apr, [facility] [place] [address] [place] [address] Apr, Type 2 diabetes mellitus with hyperosmolarity without coma, without long-term current use of insulin E11.00 [facility] [place] [address] [place] [address] Apr, Type 2 diabetes mellitus with hyperosmolarity without coma, without long-term current use of insulin E11.00 [facility] [place] [address] [place] [address] Feb, Low serum erythropoietin level R79.89 and Abnormal CBC R79.89 [facility] [place] [address] [place] [address] Feb, Abnormal CBC R79.89 [facility] [place] [address] [place] [address] Jan, Abnormal CBC R79.89 [facility] [place] [address] [place] [address] Jan, Hypertension I10 [facility] [place] [address] [place] [address] Dec, Hypertension I10 [facility] [place] [address] [place] [address] Dec, Hypertension I10 ; Mixed hyperlipidemia E78.2 and Anemia D64.9 [facility] [address] [address] Nov, [facility] [place] [address] [place] [address] Nov, Hypertension I10 [facility] [place] [address] [place] [address] Nov, Hypertension I10 ; Type 2 diabetes mellitus with hyperosmolarity without coma, without long-term current use of insulin E11.00 and Mixed hyperlipidemia E78.2 [facility] [place] [address] [place] [address] Nov, Hypertension I10 ; Other abnormal glucose R73.09 ; Screening for lipoid disorders Z13.220 and Abnormal CBC R79.89 [facility] [place] [address] [place] [address] Oct, [address] [address] Sep, [address] [address] Jun, Hypertension I[address] [address] Apr, [address] [address] Dec, Hypertension 401.[address] [address] Oct, Hypertension 401.9 and Borderline diabetes 790.29 IMMUNIZATIONS No Known Immunizations SOCIAL HISTORY Never Assessed REASON FOR VISIT medication refill PLAN OF CARE VITAL SIGNS MEDICATIONS Unknown Medications RESULTS No Results PROCEDURES No Known procedures INSTRUCTIONS MEDICATIONS ADMINISTERED No Known Medications MEDICAL (GENERAL) HISTORY Type Description Date Medical History Essential (primary) hypertension Medical History Mixed hyperlipidemia Medical History Other abnormal glucose Medical History diabetes Surgical History appendectomy Surgical History section Hospitalization History Surgery(s)/Childbirth(s) only
--- OUTSIDE RECORDS SUMMARY | 2019-10-07 14:36 | XMS REPORT ---
Author Author Wanda ESCALERA Organization [facility] Address [address] [place] [address] Care Team Providers Care Quality Assurance Monitor Body Name Role Phone ELOISE ESCALERA Unavailable PROBLEMS Type Condition ICD9-CM Code OUM43-ZJ Code Onset Dates Condition S tatus SNOMED Code Problem Polycythemia D75.1 Active 3436929 03 Problem Abscess of left genital labia 616.4 Active 579099588 Problem Borderline diabetes 790.29 Active 6241874 Problem Type 2 diabetes mellitus wit h hyperosmolarity without coma, without long-term current use of insulin E11.00 Active 356334795901692 Problem Type 2 diabetes mellitus wit hout complication, without long-term current use of insulin E11.9 Active 417103535 Problem Hypertension I10 Active 2559451 3 Problem Hypertension 401.9 Active 3769468 3 Problem Other abnormal glucose R73.09 Active 809765420 Problem Mixed hyperlipidemia E78.2 Active 807413461 ALLERGIES No Information SOCIAL HISTORY Never Assessed PLAN OF CARE VITAL SIGNS MEDICATIONS Unknown Medications RESULTS No Results PROCEDURES No Known procedures IMMUNIZATIONS No Known Immunizations MEDICAL (GENERAL) HISTORY Type Description Date Medical History Essential (primary) hypertension Medical History Mixed hyperlipidemia Medical History Other abnormal glucose Medical History diabetes Surgical History appendectomy Surgical History section Hospitalization History Surgery(s)/Childbirth(s) only
--- OUTSIDE RECORDS SUMMARY | 2019-10-07 14:37 | XMS REPORT ---
Author Author Wanda ESCALERA Organization [employer] Address Unknown Phone Unavailable Care Team Providers Care Billiard Parlor Manager Name Role Phone ELOISE ESCALERA CP Unavailable Allergies No Known Allergies Problems Problem Type Condition Code Onset Dates Condition Statu s Assessment Abnormal CBC R79.89 Active Problem Hypertension 401.9 Active Problem Borderline diabetes 790.29 Active Problem Hypertension I10 Active Assessment Other abnormal glucose R73.09 Activ e Assessment Screening for lipoid disorders Z13.220 Active Problem Abscess of left genital labia 616.4 Active Assessment Hypertension I10 Active Medications No Known Medications Procedures Procedure Coding System Code Date COMPREHEN METABOLIC PANEL CPT-4 42325 Nov COMPLETE CBC W/AUTO DIFF WBC CPT-4 55143 Nov 07, 2015 LIPID PANEL CPT-4 03672 Nov 07, 2015 VITAMIN B-12 CPT-4 92368 Nov 07, 2015 VENIPUNCT, ROUTINE* CPT-4 30625 Nov 07, 2015 GLYCATED HEMOGLOBIN TEST CPT-4 28067 Nov 07, 2015 BLOOD FOLIC ACID SERUM CPT-4 23666 Nov 06, 2 016 Results No Known Results Summary Purpose [employer] Submission
--- OUTSIDE RECORDS SUMMARY | 2019-10-07 14:37 | XMS REPORT ---
Author Author Wanda ESCALERA [facility] Address [address] [place] [address] Care Team Providers Care Stadium Manager Name Role Phone JW ELOISE Unavailable PROBLEMS Type Condition ICD9-CM Code CDP72-AD Code Onset Dates Condition S tatus SNOMED Code Problem Polycythemia D75.1 Active 0799804 03 Problem Abscess of left genital labia 616.4 Active 789154164 Problem Borderline diabetes 790.29 Active 4874531 Problem Type 2 diabetes mellitus wit h hyperosmolarity without coma, without long-term current use of insulin E11.00 Active 414898490623128 Problem Type 2 diabetes mellitus wit hout complication, without long-term current use of insulin E11.9 Active 965507009 Problem Hypertension I10 Active 3224946 3 Problem Hypertension 401.9 Active 3162060 3 Problem Other abnormal glucose R73.09 Active 990886793 Problem Mixed hyperlipidemia E78.2 Active 679927707 ALLERGIES No Information ENCOUNTERS Encounter Location Date Diagnosis [facility] [address] [facility] [place] [id number] [address] [place] [address] 27 Jun, 2017 [facility] [address] [facility] [address] [id number] [place], [place] [phone] Jun, [facility] [address] [facility] [address] [id number] [place], [place] [address] 15 Jun, 2017 [facility] [address] [facility] [place] [id number] [address] [place] [address] 07 Jun, 2017 [facility] [place] [address] [facility] [address] [id number] [place], [place] [address] Apr, Hypertension I10 and Type 2 diabetes mellitus without complication, without long-term current use of insulin E11.9 [facility] [address] [facility] [address] [id number] [place], [place] [address]055[address] Apr, Type 2 diabetes mellitus without complication, without long-term current use of insulin E11.9 [facility] [place] [address] [facility] [address] [id number] [place], [place] [address]43[address] Mar, [facility] [place] [address] [facility] [address] [id number] [place], [place] [address]50[address] Jan, [facility] [place] [address] [facility] [address] [id number] [place], [place] [address] 0190[address] Jan, [facility] [place] [address] [facility] [address] [id number] [place], [place] [address]89[address] Dec, [facility] [place] [address] [facility] [address] [id number] [place], [place] [address] 0795[address] Nov, Rhinorrhea J34.89 [facility] [place] [address] [facility] [address] [id number] [place], [place] [address] 5248[address] Nov, Type 2 diabetes mellitus without complication, without long-term current use of insulin E11.9 [facility] [place] [address] [facility] [address] [id number] [place], [place] [address] 411880 Nov, [facility] [place] [address] [facility] [address] [id number] [place], [place] [address] 0055[address] Nov, [facility] [place] [address] [facility] [address] [id number] [place], [place] [address] Nov, [facility] [place] [address] [facility] [address] [id number] [place], [place] [address] 698[address] 15 Nov, 2016 Type 2 diabetes mellitus without complication, without long-term current use of insulin E11.9 [facility] [place] [address] [facility] [address] [id number] [place], [place] [address]74[address] Nov, Well woman exam with routine gynecological exam Z01.419 and Hypertension I10 [facility] [place] [address] [facility] [address] [id number] [place], [place] [address] Oct, [facility] [place] [address] [facility] [address] [id number] [place], [place] [address] 086178 Oct, Type 2 diabetes mellitus without complication, without long-term current use of insulin E11.9 [facility] [place] [address] [facility] [address] [id number] [place], [place] [address] Oct, [facility] [place] [address] [facility] [address] [id number] [place], [place] [address] 243748 Oct, [facility] [place] [address] [facility] [address] [id number] [place], [place] [address]705 Sep, [facility] [place] [address] [facility] [address] [id number] [place], [place] [address] 792062 August, Hypertension I10 ; Mixed hyperlipidemia E78.2 ; Type 2 diabetes mellitus without complication, without long-term current use of insulin E11.9 and Polycythemia D75.1 [facility] [place] [address] [facility] [address] [id number] [place], [place] [address] 776531 Jul, [facility] [place] [address] [facility] [address] [id number] [place], [place] [address]013 Jul, [facility] [place] [address] [facility] [address] [id number] [place], [place] [address] 913980 Jul, [facility] [place] [address] [facility] [address] [id number] [place], [place] [address] 547739 Jul, [facility] [place] [address] [facility] [address] [id number] [place], [place] [address] 328946 Jul, Type 2 diabetes mellitus without complication, without long-term current use of insulin E11.9 [facility] [place] [address] [facility] [address] [id number] [place], [place] [address] 470833 Jul, Type 2 diabetes mellitus without complication, without long-term current use of insulin E11.9 [facility] [place] [address] [facility] [address] [id number] [place] [address] 148289 Jul, Elevated liver enzymes R74.8 and KARELY (acute kidney injury) N17.9 [facility] [place] [address] [facility] [address] [id number] [place], [place] [address] 050812 Jun, Jaundice R17 [facility] [place] [address] [facility] [address] [id number] [place], [place] [address] 800856 Jun, Jaundice R17 [facility] [place] [address] [facility] [address] [id number] [place], [place] [address] 988560 Jun, Cellulitis of right lower extremity L03.115 [facility] [place] [address] [facility] [address] [id number] [place], [place] [address] 167197 Jun, Dental examination Z01.20 [facility] [place] [address] [facility] [address] [id number] [place], [place] [address] 474743 Jun, Hypertension I10 ; Mixed hyperlipidemia E78.2 and Type 2 diabetes mellitus without complication, without long-term current use of insulin E11.9 [facility] [place] [address] [facility] [address] [id number] [place], [place] [address] 580707 Jun, Type 2 diabetes mellitus with hyperosmolarity without coma, without long-term current use of insulin E11.00 [facility] [place] [address] [facility] [address] [id number] [place], [place] [address] 715001 May, [facility] [place] [address] [place] [address] C [id number] [place], [place] [address] 826881 May, Type 2 diabetes mellitus without complication, without long-term current use of insulin E11.9 [facility] [place] [address] [place] [address] C [id number] [place], [place] [address] 989053 Apr, [facility] [place] [address] [place] [address] C [id number] [place], [place] [address] 496900 Apr, Type 2 diabetes mellitus with hyperosmolarity without coma, without long-term current use of insulin E11.00 [facility] [place] [address] [place] [address] C [id number] [place] [address] 567084 Apr, Type 2 diabetes mellitus with hyperosmolarity without coma, without long-term current use of insulin E11.00 [facility] [place] [address] [place] [address] C [id number] [place], [place] [address] 410843 Feb, Low serum erythropoietin level R79.89 and Abnormal CBC R79.89 [facility] [place] [address] [place] [address] C [id number] [place], [place] [address] 908077 Feb, Abnormal CBC R79.89 [facility] [place] [address] [place] [address] C [id number] [place], [place] [address] 320012 Jan, Abnormal CBC R79.89 [facility] [place] [address] [place] [address] C [id number] [place], [place] [address] 239438 Jan, Hypertension I10 [facility] [place] [address] [facility] [address] [id number] [place], [place] [address] 921309 Dec, Hypertension I10 [facility] [place] [address] [facility] [address] [id number] [place], [place] [address] 732265 09 Dec, 2015 Hypertension I10 ; Mixed hyperlipidemia E78.2 and Anemia D64.9 [facility] [place] [address] [facility] [address] [id number] [place] [address] 566917 Nov, [facility] [place] [address] [facility] [address] [id number] [place] [address] 386007 Nov, Hypertension I10 [facility] [place] [address] [facility] [address] [id number] [place] [address] 055721 Nov, Hypertension I10 ; Type 2 diabetes mellitus with hyperosmolarity without coma, without long-term current use of insulin E11.00 and Mixed hyperlipidemia E78.2 [facility] [place] [address] [facility] [address] [id number] [place] [address] 132807 Nov, Hypertension I10 ; Other abnormal glucose R73.09 ; Screening for lipoid disorders Z13.220 and Abnormal CBC R79.89 [facility] [place] [address] [facility] [address] [id number] [place] [address] 142034 Oct, [facility] [place] [address] [facility] [address] [id number] [place] [address] 098084 Sep, [facility] [place] [address] [facility] [address] [id number] [place] [address] 139888 16 Jun, 2015 Hypertension I10 [facility] [place] [address] [facility] [address] [id number] [place] [address] 596332 Apr, [facility] [place] [address] [facility] [address] [id number] [place] [address] 602438 30 Dec, 2014 Hypertension 401.9 [facility] [place] [address] [place] [address] [address] [id number] [place], [place] [address] 311939 20 Oct, 2014 Hypertension 401.9 and Borderline diabetes 790.29 IMMUNIZATIONS No Known Immunizations SOCIAL HISTORY Never Assessed REASON FOR VISIT Lab (walk-in)/ A1C. 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 PLAN OF CARE VITAL SIGNS MEDICATIONS Unknown Medications RESULTS No Results PROCEDURES Procedure Date Ordered Result Body Site GLYCATED HEMOGLOBIN TEST May 01, 2017 MICROALBUMIN, SEMIQUANT May 01, 2017 MICROALBUMIN, QUANTITATIVE May 01, 2017 ASSAY OF URINE CREATININE May 01, 2017 INSTRUCTIONS MEDICATIONS ADMINISTERED No Known Medications MEDICAL (GENERAL) HISTORY Type Description Date Medical History Essential (primary) hypertension Medical History Mixed hyperlipidemia Medical History Other abnormal glucose Medical History diabetes Surgical History appendectomy Surgical History section Hospitalization History Surgery(s)/Childbirth(s) only
--- OUTSIDE RECORDS SUMMARY | 2019-10-07 14:37 | XMS REPORT ---
Author Author Wanda ESCALERA [facility] Address [address] [place] [address] Care Team Providers Care Marketing Mgr Name Role Phone JW ELOISE Unavailable PROBLEMS Type Condition ICD9-CM Code [id number] Code Onset Dates Condition S tatus SNOMED Code Problem Polycythemia D75.1 Active 7349695 03 Problem Abscess of left genital labia 616.4 Active 233627882 Problem Borderline diabetes 790.29 Active 3829595 Problem Type 2 diabetes mellitus wit h hyperosmolarity without coma, without long-term current use of insulin E11.00 Active 377494207089015 Problem Type 2 diabetes mellitus wit hout complication, without long-term current use of insulin E11.9 Active 332193566 Problem Hypertension I10 Active 9801237 3 Problem Hypertension 401.9 Active 1249664 3 Problem Other abnormal glucose R73.09 Active 724882157 Problem Mixed hyperlipidemia E78.2 Active 425620117 ALLERGIES No Information ENCOUNTERS Encounter Location Date Diagnosis [facility] [address] [facility] [id number] [address] [place] [phone] 27 Jun, 2017 [facility] [place] [address] [facility] [address] [id number] [place], [place] [phone] Jun, [facility] [address] [facility] [address] [id number] [place], [place] [id number] 15 Jun, 2017 [facility] [address] [facility] [id number] [address] [place] [phone] 07 Jun, 2017 [facility] [place] [address] [facility] [address] [id number] [place], [place] [address] [id number] Apr, Hypertension I10 and Type 2 diabetes mellitus without complication, without long-term current use of insulin E11.9 [facility] [address] [facility] [address] [id number] [place], [place] [address] 134200 Apr, Type 2 diabetes mellitus without complication, without long-term current use of insulin E11.9 [facility] [place] [address] [facility] [address] [id number] [place] [address] 890[address] Mar, [facility] [place] [address] [facility] [address] [id number] [place] [address] 6560[address] Jan, [facility] [place] [address] [facility] [address] [id number] [place] [address] 024797 Jan, [facility] [place] [address] [facility] [address] [id number] [place] [address] 083197 Dec, [facility] [place] [address] [facility] [address] [id number] [place] [address] 588736 Nov, Rhinorrhea J34.89 [facility] [place] [address] [facility] [address] [id number] [place], [place] [address] 298432 Nov, Type 2 diabetes mellitus without complication, without long-term current use of insulin E11.9 [facility] [place] [address] [facility] [address] [id number] [place] [address] 526912 Nov, [facility] [place] [address] [facility] [address] [id number] [place] [address] 505722 Nov, [facility] [place] [address] [facility] [address] [id number] [place] [address] 597699 Nov, [facility] [place] [address] [facility] [address] [id number] [place] [address] 107588 15 Nov, 2016 Type 2 diabetes mellitus without complication, without long-term current use of insulin E11.9 [facility] [place] [address] [facility] [address] [id number] [place] [address] 520997 Nov, Well woman exam with routine gynecological exam Z01.419 and Hypertension I10 [facility] [place] [address] [facility] [address] [id number] [place] [address] 121723 Oct, [facility] [place] [address] [facility] [address] [id number] [place] [address] 227886 Oct, Type 2 diabetes mellitus without complication, without long-term current use of insulin E11.9 [facility] [place] [address] [facility] [address] [id number] [place] [address] 585181 Oct, [facility] [place] [address] [facility] [address] [id number] [place] [address] 759747 Oct, [facility] [place] [address] [facility] [address] [id number] [place] [address] 556173 Sep, [facility] [place] [address] [facility] [address] [id number] [place] [address] 893247 August, Hypertension I10 ; Mixed hyperlipidemia E78.2 ; Type 2 diabetes mellitus without complication, without long-term current use of insulin E11.9 and Polycythemia D75.1 [facility] [place] [address] [facility] [address] [id number] [place] [address] 934370 Jul, [facility] [place] [address] [facility] [address] [id number] [place] [address] 278370 Jul, [facility] [place] [address] [facility] [address] [id number] [place] [address] 992524 Jul, [facility] [place] [address] [facility] [address] [id number] [place] [address] 829935 Jul, [facility] [place] [address] [facility] [address] [id number] [place] [address] 894491 Jul, Type 2 diabetes mellitus without complication, without long-term current use of insulin E11.9 [facility] [place] [address] [facility] [address] [id number] [place] [address] 090555 Jul, Type 2 diabetes mellitus without complication, without long-term current use of insulin E11.9 [facility] [place] [address] [facility] [address] [id number] [place] [address] 922081 Jul, Elevated liver enzymes R74.8 and KARELY (acute kidney injury) N17.9 [facility] [place] [address] [facility] [address] [id number] [place] [address] 222912 Jun, Jaundice R17 [facility] [place] [address] [facility] [address] [id number] [place] [address] 026451 Jun, Jaundice R17 [facility] [place] [address] [facility] [address] [id number] [place] [address] 936252 Jun, Cellulitis of right lower extremity L03.115 [facility] [place] [address] [facility] [address] [id number] [place] [address] 648901 Jun, Dental examination Z01.20 [facility] [place] [address] [facility] [address] [id number] [place] [address] 086370 Jun, Hypertension I10 ; Mixed hyperlipidemia E78.2 and Type 2 diabetes mellitus without complication, without long-term current use of insulin E11.9 [facility] [place] [address] [facility] [address] [id number] [place] [address] 149522 Jun, Type 2 diabetes mellitus with hyperosmolarity without coma, without long-term current use of insulin E11.00 [facility] [place] [address] [facility] [address] [id number] [place] [address] 921400 May, [facility] [place] [address] [place] [address] C [id number] [place] [address] 454444 May, Type 2 diabetes mellitus without complication, without long-term current use of insulin E11.9 [facility] [place] [address] [place] [address] C [id number] [place], [place] [address] 531280 Apr, [facility] [place] [address] [place] [address] C [id number] [place] [address] 948585 Apr, Type 2 diabetes mellitus with hyperosmolarity without coma, without long-term current use of insulin E11.00 [facility] [place] [address] [place] [address] C [id number] [place] [address] 529110 Apr, Type 2 diabetes mellitus with hyperosmolarity without coma, without long-term current use of insulin E11.00 [facility] [place] [address] [place] [address] C [id number] [place] [address] 910656 Feb, Low serum erythropoietin level R79.89 and Abnormal CBC R79.89 [facility] [place] [address] [place] [address] C [id number] [place], [place] [address] 306307 Feb, Abnormal CBC R79.89 [facility] [place] [address] [place] [address] C [id number] [place], [place] [address] 892274 Jan, Abnormal CBC R79.89 [facility] [place] [address] [place] [address] C [id number] [place], [place] [address] 276541 Jan, Hypertension I10 [facility] [place] [address] [facility] [address] [id number] [place] [address] 397916 Dec, Hypertension I10 [facility] [place] [address] [facility] [address] [id number] [place] [address] 132466 Dec, Hypertension I10 ; Mixed hyperlipidemia E78.2 and Anemia D64.9 [facility] [place] [address] [facility] [address] [id number] [place] [address] 791347 Nov, [facility] [place] [address] [facility] [address] [id number] [place] [address] 654730 Nov, Hypertension I10 [facility] [place] [address] [place] [address] C [id number] [place] [address] 145454 Nov, Hypertension I10 ; Type 2 diabetes mellitus with hyperosmolarity without coma, without long-term current use of insulin E11.00 and Mixed hyperlipidemia E78.2 [facility] [place] [address] [place] [address] C [id number] [place] [address] 766436 Nov, Hypertension I10 ; Other abnormal glucose R73.09 ; Screening for lipoid disorders Z13.220 and Abnormal CBC R79.89 [facility] [place] [address] [place] [address] C [id number] [place] [address] 377023 Oct, [facility] [place] [address] [place] [address] C [id number] [place] [address] 709188 Sep, [facility] [place] [address] [place] [address] C [id number] [place] [address] 251672 Jun, Hypertension I10 [facility] [place] [address] [place] [address] C [id number] [place] [address] 983594 Apr, [facility] [place] [address] [place] [address] C [id number] [place] [address] 872013 30 Dec, 2014 Hypertension 401.9 [facility] [place] [address] [place] [address] C [id number] [place] [address] 672613 Oct, Hypertension 401.9 and Borderline diabetes 790.29 IMMUNIZATIONS No Known Immunizations SOCIAL HISTORY Never Assessed REASON FOR VISIT med refill PLAN OF CARE VITAL SIGNS MEDICATIONS Medication Instructions Dosage Frequency Start Date End Date Duration S dee Lisinopril 10 mg TAKE 1 TABLET BY MOUTH DAILY Orally 30 30 Active RESULTS No Results PROCEDURES No Known procedures INSTRUCTIONS MEDICATIONS ADMINISTERED No Known Medications MEDICAL (GENERAL) HISTORY Type Description Date Medical History Essential (primary) hypertension Medical History Mixed hyperlipidemia Medical History Other abnormal glucose Medical History diabetes Surgical History appendectomy Surgical History section Hospitalization History Surgery(s)/Childbirth(s) only
--- OUTSIDE RECORDS SUMMARY | 2019-10-07 14:37 | XMS REPORT ---
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 Name Role Phone ELOISE ESCALERA Unavailable PROBLEMS Type Condition ICD9-CM Code VLV48-IY Code Onset Dates Condition S tatus SNOMED Code Problem Polycythemia D75.1 Active 4927062 03 Problem Abscess of left genital labia 616.4 Active 367443032 Problem Borderline diabetes 790.29 Active 1173502 Problem Type 2 diabetes mellitus wit h hyperosmolarity without coma, without long-term current use of insulin E11.00 Active 841249578008273 Problem Type 2 diabetes mellitus wit hout complication, without long-term current use of insulin E11.9 Active 176144374 Problem Hypertension I10 Active 0355183 3 Problem Hypertension 401.9 Active 2645032 3 Problem Other abnormal glucose R73.09 Active 660331939 Problem Mixed hyperlipidemia E78.2 Active 930054464 ALLERGIES Substance Reaction Event Type Date Status Keflex numbness in extremities Drug Allergy August, Acti ve SOCIAL HISTORY Never Assessed PLAN OF CARE Activity Details Follow Up prn, 2 Weeks, 4 Weeks Reason :HTN, DM VITAL SIGNS Height 5'4" in 2016-08-12 Weight 222 lbs 2016-08-12 Temperature 98.4 degrees Fahrenheit 2016-08-12 Heart Rate 88 bpm 2016-08-12 Respiratory Rate 18 2016-08-12 BMI 38.10 kg/m2 2016-08-12 Blood pressure systolic 136 mmHg 2016-08-12 Blood pressure diastolic 82 mmHg 2016-08-12 MEDICATIONS Medication Instructions Dosage Frequency Start Date End Date Duration S tatus Tradjenta 5 mg Orally Once a day 1 tablet 24h Jul, 3 0 day(s) Active Lisinopril 10 MG TAKE 1 TABLET BY MOUTH DAILY 30 Active RESULTS Name Result Date Reference Range CBC 2016-08-12 WBC 10.6 3.4-10.8 RBC 4.35 3.77-5.28 Hemoglobin 13.1 11.1-15.9 Hematocrit 41.7 34.0-46.6 MCV 96 79-97 MCH 30.1 26.6-33.0 MCHC 31.4 31.5-35.7 RDW 23.1 12.3-15.4 Platelets 337 150-379 Neutrophils 69 Lymphs 26 Monocytes 3 Eos 2 Basos 0 Immature Cells Neutrophils (Absolute) 7.3 1.4-7.0 Lymphs (Absolute) 2.8 0.7-3.1 Monocytes(Absolute) 0.3 0.1-0.9 Eos (Absolute) 0.2 0.0-0.4 Baso (Absolute) 0.0 0.0-0.2 Immature Granulocytes Immature Grans (Abs) NRBC Hematology Comments: Note: [facility] 2016-08-12 Glucose, Serum 268 65-99 BUN 15 6-24 Creatinine, Serum 0.82 0.57-1.00 eGFR If NonAfricn Am 85 >59 eGFR If Africn Am 99 >59 BUN/Creatinine Ratio 18 9-23 Sodium, Serum 137 134-144 Potassium, Serum 4.4 3.5-5.2 Chloride, Serum 100 96-106 Carbon Dioxide, Total 18 18-29 Calcium, Serum 9.9 8.7-10.2 Protein, Total, Serum 7.5 6.0-8.5 Albumin, Serum 4.3 3.5-5.5 Globulin, Total 3.2 1.5-4.5 A/G Ratio 1.3 1.2-2.2 Bilirubin, Total 0.5 0.0-1.2 Alkaline Phosphatase, S 117 39-117 AST (SGOT) 17 0-40 ALT (SGPT) 19 0-32 PROCEDURES Procedure Date Ordered Result Body Site COMPREHEN METABOLIC PANEL August 12, 2016 VENIPUNCT, ROUTINE* August 12, 2016 COMPLETE CBC W/AUTO DIFF WBC August 12, 2016 IMMUNIZATIONS No Known Immunizations MEDICAL (GENERAL) HISTORY Type Description Date Medical History Essential (primary) hypertension Medical History Mixed hyperlipidemia Medical History Other abnormal glucose Medical History diabetes Surgical History appendectomy Surgical History section Hospitalization History Surgery(s)/Childbirth(s) only
--- OUTSIDE RECORDS SUMMARY | 2019-10-07 14:37 | XMS REPORT ---
Author Author Wanda ESCALERA Organization [employer] Address Unknown Phone Unavailable Care Team Providers Care Box Office Agent Name Role Phone ELOISE ESCALERA CP Unavailable Allergies, Adverse Reactions, Alerts Substance Reaction Event Type Keflex numbness in extremities Drug Allergy Problems Problem Type Condition Code Onset Dates Condition Statu s Problem Mixed hyperlipidemia E78.2 Active Problem Hypertension I10 Active Problem Other abnormal glucose R73.09 Activ e Problem Abscess of left genital labia 616.4 Active Assessment Hypertension I10 Active Problem Hypertension 401.9 Active Problem Borderline diabetes 790.29 Active Medications Medication Code System Code Instructions Start Date End Date Status Dosage Lisinopril [facility] 22061987342 20 mg 1 tablet Once a day Orally Metformin HCl [facility] 46129505280 500 MG TAKE ONE TABLET TWICE DAILY WITH FOOD. Lovastatin [facility] [address]-99 10 mg Orally Once a day Nov 14, 2015 1 tablet with a meal Metformin HCl [facility] [address]-32 1000 MG Orally Twice a day TAKE ONE TABLET TWICE DAILY WITH FOOD. Lisinopril [facility] [address]-46 40 MG Orally 1 tablet Once a day Orally Procedures Procedure Coding System Code Date Office Visit, Est Pt., Level 3 CPT-4 19079 A 2015 Vital Signs Date/Time: Nov 16, 2015 Cardiac Monitoring Heart Rate 84 bpm Weight 225.2 lbs Height 5'4" in BMI 38.65 Index Blood Pressure Diastolic 98 mmHg Blood Pressure Systolic 132 mmHg Results No Known Results Summary Purpose [employer] Submission
--- OUTSIDE RECORDS SUMMARY | 2019-10-07 14:37 | XMS REPORT ---
Author Author Wanda LITTLE Organization [facility] Address [address] [place] [address] Care Team Providers Care Command And Control Systems Integrator Name Role Phone SD LITTLE Unavailable PROBLEMS Type Condition ICD9-CM Code [id number] Code Onset Dates Condition S tatus SNOMED Code Problem Polycythemia D75.1 Active 7201631 03 Problem Abscess of left genital labia 616.4 Active 350365848 Problem Borderline diabetes 790.29 Active 5118385 Problem Type 2 diabetes mellitus wit h hyperosmolarity without coma, without long-term current use of insulin E11.00 Active 384395295769447 Problem Type 2 diabetes mellitus wit hout complication, without long-term current use of insulin E11.9 Active 020898022 Problem Hypertension I10 Active 5303435 3 Problem Hypertension 401.9 Active 2496582 3 Problem Other abnormal glucose R73.09 Active 248494407 Problem Mixed hyperlipidemia E78.2 Active 022980925 ALLERGIES No Information SOCIAL HISTORY Never Assessed [...]
--- OUTSIDE RECORDS SUMMARY | 2019-10-07 14:37 | XMS REPORT ---
Author Author Wanda ESCALERA [facility] Address [address] [place] [address] Care Team Providers Care Hosiery Looper Name Role Phone JW ELOISE Unavailable PROBLEMS Type Condition ICD9-CM Code UPR70-NM Code Onset Dates Condition S tatus SNOMED Code Problem Polycythemia D75.1 Active 0207520 03 Problem Abscess of left genital labia 616.4 Active 766925142 Problem Borderline diabetes 790.29 Active 3325806 Problem Type 2 diabetes mellitus wit h hyperosmolarity without coma, without long-term current use of insulin E11.00 Active 555906277487506 Problem Type 2 diabetes mellitus wit hout complication, without long-term current use of insulin E11.9 Active 729177245 Problem Hypertension I10 Active 3844120 3 Problem Hypertension 401.9 Active 9753110 3 Problem Other abnormal glucose R73.09 Active 592824408 Problem Mixed hyperlipidemia E78.2 Active 283144533 ALLERGIES No Information ENCOUNTERS Encounter Location Date Diagnosis [facility] [address] [facility] [id number] [address] [place] [id number] 27 Jun, 2017 [facility] [place] [address] [facility] [address] [id number] [place], [place] [phone] Jun, [facility] [address] [facility] [address] [id number] [place], [place] [id number] 15 Jun, 2017 [facility] [address] [facility] [id number] [address] [place] [id number] 07 Jun, 2017 [facility] [place] [address] [facility] [address] [id number] [place], [place] [id number] Apr, Hypertension I10 and Type 2 diabetes mellitus without complication, without long-term current use of insulin E11.9 [facility] [address] [facility] [address] [id number] [place], [place] [address] 207117 Apr, Type 2 diabetes mellitus without complication, without long-term current use of insulin E11.9 [facility] [place] [address] [facility] [address] [id number] [place], [place] [address]49[address] Mar, [facility] [place] [address] [facility] [address] [id number] [place] [address] 0686[address] Jan, [facility] [place] [address] [facility] [address] [id number] [place] [address] 733708 Jan, [facility] [place] [address] [facility] [address] [id number] [place] [address] 130[address] Dec, [facility] [place] [address] [facility] [address] [id number] [place] [address] 858598 Nov, Rhinorrhea J34.89 [facility] [place] [address] [facility] [address] [id number] [place] [address] 3464[address] Nov, Type 2 diabetes mellitus without complication, without long-term current use of insulin E11.9 [facility] [place] [address] [facility] [address] [id number] [place], [place] [address] 186605 Nov, [facility] [place] [address] [facility] [address] [id number] [place] [address] 8548[address] Nov, [facility] [place] [address] [facility] [address] [id number] [place] [address] 835730 Nov, [facility] [place] [address] [facility] [address] [id number] [place] [address] [id number] 15 Nov, 2016 Type 2 diabetes mellitus without complication, without long-term current use of insulin E11.9 [facility] [place] [address] [facility] [address] [id number] [place] [address] 006135 Nov, Well woman exam with routine gynecological exam Z01.419 and Hypertension I10 [facility] [place] [address] [facility] [address] [id number] [place] [address] 522221 Oct, [facility] [place] [address] [facility] [address] [id number] [place] [address] 672441 Oct, Type 2 diabetes mellitus without complication, without long-term current use of insulin E11.9 [facility] [place] [address] [facility] [address] [id number] [place] [address] 280102 Oct, [facility] [place] [address] [facility] [address] [id number] [place] [address] 057328 Oct, [facility] [place] [address] [facility] [address] [id number] [place] [address] 300690 Sep, [facility] [place] [address] [facility] [address] [id number] [place], [place] [address] 140303 August, Hypertension I10 ; Mixed hyperlipidemia E78.2 ; Type 2 diabetes mellitus without complication, without long-term current use of insulin E11.9 and Polycythemia D75.1 [facility] [place] [address] [facility] [address] [id number] [place] [address] 057881 Jul, [facility] [place] [address] [facility] [address] [id number] [place] [address] 593546 Jul, [facility] [place] [address] [facility] [address] [id number] [place] [address] 153608 Jul, [facility] [place] [address] [facility] [address] [id number] [place] [address] 726268 Jul, [facility] [place] [address] [facility] [address] [id number] [place] [address] 712291 Jul, Type 2 diabetes mellitus without complication, without long-term current use of insulin E11.9 [facility] [place] [address] [facility] [address] [id number] [place], [place] [address] 780596 Jul, Type 2 diabetes mellitus without complication, without long-term current use of insulin E11.9 [facility] [place] [address] [facility] [address] [id number] [place] [address] 987530 Jul, Elevated liver enzymes R74.8 and KARELY (acute kidney injury) N17.9 [facility] [place] [address] [facility] [address] [id number] [place] [address] 280770 Jun, Jaundice R17 [facility] [place] [address] [facility] [address] [id number] [place] [address] 154759 Jun, Jaundice R17 [facility] [place] [address] [facility] [address] [id number] [place] [address] 977424 Jun, Cellulitis of right lower extremity L03.115 [facility] [place] [address] [facility] [address] [id number] [place] [address] 141342 Jun, Dental examination Z01.20 [facility] [place] [address] [facility] [address] [id number] [place], [place] [address] 184260 Jun, Hypertension I10 ; Mixed hyperlipidemia E78.2 and Type 2 diabetes mellitus without complication, without long-term current use of insulin E11.9 [facility] [place] [address] [facility] [address] [id number] [place] [address] 173046 Jun, Type 2 diabetes mellitus with hyperosmolarity without coma, without long-term current use of insulin E11.00 [facility] [place] [address] [facility] [address] [id number] [place] [address] 010251 May, [facility] [place] [address] [place] [address] C [id number] [place], [place] [address] 761404 May, Type 2 diabetes mellitus without complication, without long-term current use of insulin E11.9 [facility] [place] [address] [place] [address] C [id number] [place], [place] [address] 292067 Apr, [facility] [place] [address] [place] [address] C [id number] [place] [address] 120203 Apr, Type 2 diabetes mellitus with hyperosmolarity without coma, without long-term current use of insulin E11.00 [facility] [place] [address] [place] [address] C [id number] [place], [place] [address] 489705 Apr, Type 2 diabetes mellitus with hyperosmolarity without coma, without long-term current use of insulin E11.00 [facility] [place] [address] [place] [address] C [id number] [place], [place] [address] 195605 Feb, Low serum erythropoietin level R79.89 and Abnormal CBC R79.89 [facility] [place] [address] [place] [address] C [id number] [place], [place] [address] 635806 Feb, Abnormal CBC R79.89 [facility] [place] [address] [place] [address] C [id number] [place], [place] [address] 140803 Jan, Abnormal CBC R79.89 [facility] [place] [address] [place] [address] C [id number] [place] [address] 015168 Jan, Hypertension I10 [facility] [place] [address] [facility] [address] [id number] [place], [place] [address] 191459 Dec, Hypertension I10 [facility] [place] [address] [facility] [address] [id number] [place] [address] 715095 Dec, Hypertension I10 ; Mixed hyperlipidemia E78.2 and Anemia D64.9 [facility] [place] [address] [facility] [address] [id number] [place] [address] 365563 Nov, [facility] [place] [address] [facility] [address] [id number] [place] [address] 262452 Nov, Hypertension I10 [facility] [place] [address] [facility] [address] [id number] [place] [address] 470478 Nov, Hypertension I10 ; Type 2 diabetes mellitus with hyperosmolarity without coma, without long-term current use of insulin E11.00 and Mixed hyperlipidemia E78.2 [facility] [place] [address] [facility] [address] [id number] [place] [address] 315694 Nov, Hypertension I10 ; Other abnormal glucose R73.09 ; Screening for lipoid disorders Z13.220 and Abnormal CBC R79.89 [facility] [place] [address] [place] [address] [address] [id number] [place] [address] 496510 Oct, [facility] [place] [address] [facility] [address] [id number] [place] [address] 529896 Sep, [facility] [place] [address] [place] [address] C [id number] [place] [address] 763544 Jun, [facility]pertension I10 [facility] [place] [address] [facility] [address] [id number] [place], [place] [address] 367237 Apr, [facility] [place] [address] [place] [address] C [id number] [place], [place] [address] 173259 Dec, Hypertension 401.9 [facility] [place] [address] [place] [address] C [id number] [place], [place] [address] 510017 Oct, Hypertension 401.9 and Borderline diabetes 790.29 IMMUNIZATIONS No Known Immunizations SOCIAL HISTORY Never Assessed REASON FOR VISIT needs paperwork PLAN OF CARE VITAL SIGNS MEDICATIONS Unknown Medications RESULTS No Results PROCEDURES No Known procedures INSTRUCTIONS MEDICATIONS ADMINISTERED No Known Medications MEDICAL (GENERAL) HISTORY Type Description Date Medical History Essential (primary) hypertension Medical History Mixed hyperlipidemia Medical History Other abnormal glucose Medical History diabetes Surgical History appendectomy Surgical History section Hospitalization History Surgery(s)/Childbirth(s) only
--- OUTSIDE RECORDS SUMMARY | 2019-10-07 14:37 | XMS REPORT ---
Author Wanda Barragan Organization [employer] Address Unknown Phone Unavailable Care Team Providers Care Metal Sprayer Protective Coating Name Role Phone LOKESH LEYVA CP Unavailable Allergies No Known Allergies Problems Problem Type Condition Code Onset Dates Condition Statu s Problem Borderline diabetes 790.29 Active Problem Abscess of left genital labia 616.4 Active Problem Hypertension 401.9 Active Medications No Known Medications Results No Known Results Summary Purpose [employer] Submission
--- OUTSIDE RECORDS SUMMARY | 2019-10-07 14:37 | XMS REPORT ---
Author Author Wanda ESCALERA Organization [facility] Address [address] [place] [address] Care Team Providers Care Supervisor Volunteer Services Name Role Phone ELOISE ESCALERA Unavailable PROBLEMS Type Condition ICD9-CM Code NMV97-LS Code Onset Dates Condition S tatus SNOMED Code Problem Polycythemia D75.1 Active 0677997 03 Problem Abscess of left genital labia 616.4 Active 552835172 Problem Borderline diabetes 790.29 Active 8777497 Problem Type 2 diabetes mellitus wit h hyperosmolarity without coma, without long-term current use of insulin E11.00 Active 783540460899750 Problem Type 2 diabetes mellitus wit hout complication, without long-term current use of insulin E11.9 Active 223734632 Problem Hypertension I10 Active 1755767 3 Problem Hypertension 401.9 Active 9883049 3 Problem Other abnormal glucose R73.09 Active 459852117 Problem Mixed hyperlipidemia E78.2 Active 392521712 ALLERGIES No Known Allergies SOCIAL HISTORY No smoking Hx information available PLAN OF CARE VITAL SIGNS MEDICATIONS Medication Instructions Dosage Frequency Start Date End Date Duration S tatus Metformin HCl 1000 MG Orally Twice a day 2 capsules 12h Active RESULTS No Results PROCEDURES No Known procedures IMMUNIZATIONS No Known Immunizations
--- OUTSIDE RECORDS SUMMARY | 2019-10-07 14:37 | XMS REPORT ---
Author Author Wanda ESCALERA Organization [employer] Address Unknown Phone Unavailable Care Team Providers Care Mulcher Operator Name Role Phone ELOISE ESCALERA CP Unavailable Allergies No Known Allergies Problems Problem Type Condition Code Onset Dates Condition Statu s Problem Mixed hyperlipidemia E78.2 Active Problem Hypertension I10 Active Problem Other abnormal glucose R73.09 Activ e Problem Abscess of left genital labia 616.4 Active Assessment Abnormal CBC R79.89 Active Problem Hypertension 401.9 Active Problem Borderline diabetes 790.29 Active Medications No Known Medications Procedures Procedure Coding System Code Date ASSAY THYROID STIM HORMONE CPT-4 61639 Feb VITAMIN B-12 CPT-4 72368 Feb 05, 2016 ASSAY OF ERYTHROPOIETIN CPT-4 90169 Feb 05, 2016 HEMOCULT CPT-4 00478 Feb 05, 2016 ASSAY OF FOLIC ACID, RBC CPT-4 25542 Feb 05, 2016 VENIPUNCT, ROUTINE* CPT-4 89302 Feb 05, 2016 BLOOD FOLIC ACID SERUM CPT-4 49347 Feb 04, 2 016 Results Name Result Date Reference Range Unit Abnormali ty Flag TSH ----TSH 2.430 [id number] 0.450-4.500 uIU/mL ERYTHROPOIETIN ----Erythropoietin 1.1 18566078 2.6-18.5 mIU/mL L ROUTINE VENIPUNCTURE FOLATE (FOLIC ACID) ----Folate (Folic Acid), Serum 9.6 [id number] >3.0 ng/mL VITAMIN B12 ----Vitamin B12 1306 [id number] 211-946 pg/mL H Summary Purpose [employer] Submission
--- OUTSIDE RECORDS SUMMARY | 2019-10-07 14:37 | XMS REPORT ---
Author Author Wanda ESCALERA Organization [facility] Address [address] [place] [address] Care Team Providers Care Developmental Education Instructor Name Role Phone ELOISE ESCALERA Unavailable PROBLEMS Type Condition ICD9-CM Code HAE18-KO Code Onset Dates Condition S tatus SNOMED Code Problem Polycythemia D75.1 Active 5932268 03 Problem Abscess of left genital labia 616.4 Active 024105214 Problem Borderline diabetes 790.29 Active 3045500 Problem Type 2 diabetes mellitus wit h hyperosmolarity without coma, without long-term current use of insulin E11.00 Active 057262968882788 Problem Type 2 diabetes mellitus wit hout complication, without long-term current use of insulin E11.9 Active 579320152 Problem Hypertension I10 Active 6372342 3 Problem Hypertension 401.9 Active 3043822 3 Problem Other abnormal glucose R73.09 Active 168404583 Problem Mixed hyperlipidemia E78.2 Active 932156139 ALLERGIES Substance Reaction Event Type Date Status Keflex numbness in extremities Drug Allergy Jun, Acti ve SOCIAL HISTORY Never Assessed PLAN OF CARE Activity Details Follow Up prn Reason: VITAL SIGNS Height 5'4" in 2016-06-25 Weight 222.0 lbs 2016-06-25 Temperature 98.2 degrees Fahrenheit 2016-06-25 Heart Rate 96 bpm 2016-06-25 Respiratory Rate 20 2016-06-25 BMI 38.10 kg/m2 2016-06-25 Blood pressure systolic 104 mmHg 2016-06-25 Blood pressure diastolic 64, 104 mmHg 2016-06-25 MEDICATIONS Medication Instructions Dosage Frequency Start Date End Date Duration S tatus Lovastatin 40 MG TAKE 1 TABLET BY MOUTH DAILY WITH A MEAL 30 Active Hydrochlorothiazide 25 MG 1 tablet Once a day Orally Active MetFORMIN HCl ER 500 MG TAKE 2 TABLETS TWICE DAILY 30 Active Aspirin Adult Low Dose 81 MG Orally Once a day 1 tablet 24h Active Hydroxyurea 500 MG Activ e Lisinopril 40 MG TAKE 1 TABLET BY MOUTH DAILY 30 Active Clindamycin HCl 150 MG Orally every 8 hrs 2 capsules 8h 10 day(s) Active RESULTS No Results PROCEDURES No Known procedures IMMUNIZATIONS No Known Immunizations MEDICAL (GENERAL) HISTORY Type Description Date Medical History Essential (primary) hypertension Medical History Mixed hyperlipidemia Medical History Other abnormal glucose Medical History diabetes Surgical History appendectomy Surgical History section Hospitalization History Surgery(s)/Childbirth(s) only
--- OUTSIDE RECORDS SUMMARY | 2019-10-07 14:37 | XMS REPORT ---
Author Author Wanda ESCALERA Organization [facility] Address [address] [place] [address] Care Team Providers Care Railroad Wheels And Axle Inspector Name Role Phone ELOISE ESCALERA Unavailable PROBLEMS Type Condition ICD9-CM Code DYZ30-GT Code Onset Dates Condition S tatus SNOMED Code Problem Polycythemia D75.1 Active 3944514 03 Problem Abscess of left genital labia 616.4 Active 801447434 Problem Borderline diabetes 790.29 Active 7136071 Problem Type 2 diabetes mellitus wit h hyperosmolarity without coma, without long-term current use of insulin E11.00 Active 621589778731850 Problem Type 2 diabetes mellitus wit hout complication, without long-term current use of insulin E11.9 Active 099696854 Problem Hypertension I10 Active 7423955 3 Problem Hypertension 401.9 Active 4098015 3 Problem Other abnormal glucose R73.09 Active 805939082 Problem Mixed hyperlipidemia E78.2 Active 865548019 ALLERGIES No Information SOCIAL HISTORY Never Assessed PLAN OF CARE Activity Details Follow Up 2 - 3 Days Reason: VITAL SIGNS MEDICATIONS Unknown Medications RESULTS No Results PROCEDURES Procedure Date Ordered Result Body Site GLYCATED HEMOGLOBIN TEST June 06, 2016 IMMUNIZATIONS No Known Immunizations MEDICAL (GENERAL) HISTORY Type Description Date Medical History Essential (primary) hypertension Medical History Mixed hyperlipidemia Medical History Other abnormal glucose Medical History diabetes Surgical History appendectomy Surgical History section Hospitalization History Surgery(s)/Childbirth(s) only
--- OUTSIDE RECORDS SUMMARY | 2019-10-07 14:37 | XMS REPORT ---
Author Author Wanda ESCALERA Organization [employer] Address Unknown Phone Unavailable Care Team Providers Care Pilates Instructor Name Role Phone ELOISE ESCALERA CP Unavailable [...] Start Date End Date Status Dosage Hydrochlorothiazide [facility] [address]-25 25 MG Orally Once a day Dec 062015 1 tablet Lovastatin [facility] [address]-10 40 mg Orally Once a day Nov 14, 2015 1 tablet with a meal Metformin HCl [facility] [address]-41 1000 MG Orally Twice a day TAKE ONE TABLET TWICE DAILY WITH FOOD. Lisinopril [facility] [address]-23 40 mg Orally Once a day 1 tablet Once a day Orally Procedures Procedure Coding System Code Date Office Visit, Est Pt., Level 3 CPT-[address] 2015 Vital Signs Date/Time: Jan 16, 2016 Cardiac Monitoring Heart Rate 84 bpm Weight 221.2 lbs Height 5'4" in BMI 37.96 Index Blood Pressure Diastolic 84 mmHg Blood Pressure Systolic 152 mmHg Results No Known Results Summary Purpose [employer] Submission
--- OUTSIDE RECORDS SUMMARY | 2019-10-07 14:37 | XMS REPORT ---
Author Author Wanda ESCALERA Organization [facility] Address [address] [place] [address] Care Team Providers Care District Plant Engineer Name Role Phone JW ELOISE Unavailable PROBLEMS Type Condition ICD9-CM Code MSI83-ML Code Onset Dates Condition S tatus SNOMED Code Problem Polycythemia D75.1 Active 4235721 03 Problem Abscess of left genital labia 616.4 Active 463305790 Problem Borderline diabetes 790.29 Active 5476322 Problem Type 2 diabetes mellitus wit h hyperosmolarity without coma, without long-term current use of insulin E11.00 Active 312674357770201 Problem Type 2 diabetes mellitus wit hout complication, without long-term current use of insulin E11.9 Active 141424478 Problem Hypertension I10 Active 6217985 3 Problem Hypertension 401.9 Active 3862853 3 Problem Other abnormal glucose R73.09 Active 549573346 Problem Mixed hyperlipidemia E78.2 Active 980142873 ALLERGIES No Information ENCOUNTERS Encounter Location Date Diagnosis [facility] [address] [id number] [place], [place] [address] Jun, [facility] [address] [facility] [id number] [address] [place] [address] Jun, [facility] [place] [address] [facility] [address] [id number] [place] [address] 1789[address] Apr, Hypertension I10 and Type 2 diabetes mellitus without complication, without long-term current use of insulin E11.9 [facility] [address] [place] [address] C [id number] [place] [address] [id number] Apr, Type 2 diabetes mellitus without complication, without long-term current use of insulin E11.9 [facility] [address] [place] [address] C [id number] [place], [place] [id number] Mar, [address] [id number] [place], [place] [address] [id number] 31 Jan, 2017 [facility] [place] [address] [facility] [address] [id number] [place] [address] [id number] Jan, [facility] [place] [address] [facility] [address] [id number] [place] [address] 770194 Dec, [facility] [place] [address] [facility] [address] [id number] [place], [place] [address] 493605 Nov, Rhinorrhea J34.89 [facility] [place] [address] [facility] [address] [id number] [place] [address] 101243 Nov, Type 2 diabetes mellitus without complication, without long-term current use of insulin E11.9 [facility] [place] [address] [facility] [address] [id number] [place] [address] 866516 Nov, [facility] [place] [address] [facility] [address] [id number] [place] [address] 478586 Nov, [facility] [place] [address] [facility] [address] [id number] [place] [address] 913361 Nov, [facility] [place] [address] [facility] [address] [id number] [place] [address] 501129 Nov, Type 2 diabetes mellitus without complication, without long-term current use of insulin E11.9 [facility] [place] [address] [facility] [address] [id number] [place] [address] 572836 Nov, Well woman exam with routine gynecological exam Z01.419 and Hypertension I10 [facility] [place] [address] [facility] [address] [id number] [place] [address] 972426 Oct, [facility] [place] [address] [facility] [address] [id number] [place] [address] 097067 Oct, Type 2 diabetes mellitus without complication, without long-term current use of insulin E11.9 [facility] [place] [address] [facility] [address] [id number] [place] [address] 694567 Oct, [facility] [place] [address] [facility] [address] [id number] [place] [address] 492486 Oct, [facility] [place] [address] [facility] [address] [id number] [place] [address] 853568 Sep, [facility] [place] [address] [facility] [address] [id number] [place] [address] 462307 August, Hypertension I10 ; Mixed hyperlipidemia E78.2 ; Type 2 diabetes mellitus without complication, without long-term current use of insulin E11.9 and Polycythemia D75.1 [facility] [place] [address] [facility] [address] [id number] [place] [address] 985736 Jul, [facility] [place] [address] [facility] [address] [id number] [place] [address] 777326 Jul, [facility] [place] [address] [facility] [address] [id number] [place] [address] 035829 Jul, [facility] [place] [address] [facility] [address] [id number] [place] [address] 372908 Jul, [facility] [place] [address] [facility] [address] [id number] [place] [address] 609975 Jul, Type 2 diabetes mellitus without complication, without long-term current use of insulin E11.9 [facility] [place] [address] [place] [address] [address] [id number] [place] [address] 805406 Jul, Type 2 diabetes mellitus without complication, without long-term current use of insulin E11.9 [facility] [place] [address] [facility] [address] [id number] [place] [address] 747953 Jul, Elevated liver enzymes R74.8 and KARELY (acute kidney injury) N17.9 [facility] [place] [address] [facility] [address] [id number] [place] [address] 668797 Jun, Jaundice R17 [facility] [place] [address] [facility] [address] [id number] [place] [address] 371903 Jun, Jaundice R17 [facility] [place] [address] [place] [address] [address] [id number] [place] [address] 817127 Jun, Cellulitis of right lower extremity L03.115 [facility] [place] [address] [place] [address] [address] [id number] [place] [address] 682786 Jun, Dental examination Z01.20 [facility] [place] [address] [facility] [address] [id number] [place] [address] 606666 Jun, Hypertension I10 ; Mixed hyperlipidemia E78.2 and Type 2 diabetes mellitus without complication, without long-term current use of insulin E11.9 [facility] [place] [address] [facility] [address] [id number] [place] [address] 543829 Jun, Type 2 diabetes mellitus with hyperosmolarity without coma, without long-term current use of insulin E11.00 [facility] [place] [address] [facility] [address] [id number] [place] [address] 161270 May, [facility] [place] [address] [facility] [address] [id number] [place] [address] 282642 May, Type 2 diabetes mellitus without complication, without long-term current use of insulin E11.9 [facility] [place] [address] [place] [address] C [id number] [place] [address] 379749 Apr, [facility] [place] [address] [place] [address] C [id number] [place] [address] 209650 Apr, Type 2 diabetes mellitus with hyperosmolarity without coma, without long-term current use of insulin E11.00 [facility] [place] [address] [facility] [address] [id number] [place] [address] 051264 Apr, Type 2 diabetes mellitus with hyperosmolarity without coma, without long-term current use of insulin E11.00 [facility] [place] [address] [place] [address] C [id number] [place] [address] 023043 Feb, Low serum erythropoietin level R79.89 and Abnormal CBC R79.89 [facility] [place] [address] [place] [address] C [id number] [place] [address] 298853 Feb, Abnormal CBC R79.89 [facility] [place] [address] [place] [address] C [id number] [place] [address] 986216 Jan, Abnormal CBC R79.89 [facility] [place] [address] [place] [address] C [id number] [place] [address] 677780 Jan, Hypertension I10 [facility] [place] [address] [place] [address] C [id number] [place] [address] 433242 Dec, Hypertension I10 [facility] [place] [address] [place] [address] C [id number] [place] [address] 754870 Dec, Hypertension I10 ; Mixed hyperlipidemia E78.2 and Anemia D64.9 [facility] [place] [address] [place] [address] C [id number] [place] [address] 186226 Nov, [facility] [place] [address] [facility] [address] [id number] [place] [address] 944641 Nov, Hypertension I10 [facility] [place] [address] [facility] [address] [id number] [place] [address] 620353 10 Nov, 2015 Hypertension I10 ; Type 2 diabetes mellitus with hyperosmolarity without coma, without long-term current use of insulin E11.00 and Mixed hyperlipidemia E78.2 [facility] [place] [address] [facility] [address] [id number] [place] [address] 334417 Nov, Hypertension I10 ; Other abnormal glucose R73.09 ; Screening for lipoid disorders Z13.220 and Abnormal CBC R79.89 [facility] [place] [address] [facility] [address] [id number] [place] [address] 611334 Oct, [facility] [place] [address] [facility] [address] [id number] [place] [address] 924823 Sep, [facility] [place] [address] [facility] [address] [id number] [place] [address] 311688 Jun, Hypertension I10 [facility] [place] [address] [facility] [address] [id number] [place] [address] 286227 Apr, [facility] [place] [address] [facility] [address] [id number] [place], [place] [address] 128771 30 Dec, 2014 Hypertension 401.9 [facility] [place] [address] [place] [address] C [id number] [place] [address] 772846 Oct, Hypertension 401.9 and Borderline diabetes 790.29 IMMUNIZATIONS No Known Immunizations SOCIAL HISTORY Never Assessed REASON FOR VISIT Refill request PLAN OF CARE VITAL SIGNS MEDICATIONS Medication Instructions Dosage Frequency Start Date End Date Duration S tatus Tradjenta 5 mg Orally Once a day 1 tablet 24h Jul, 3 0 day(s) Active RESULTS No Results PROCEDURES No Known procedures INSTRUCTIONS MEDICATIONS ADMINISTERED No Known Medications MEDICAL (GENERAL) HISTORY Type Description Date Medical History Essential (primary) hypertension Medical History Mixed hyperlipidemia Medical History Other abnormal glucose Medical History diabetes Surgical History appendectomy Surgical History section Hospitalization History Surgery(s)/Childbirth(s) only
--- OUTSIDE RECORDS SUMMARY | 2019-10-07 14:37 | XMS REPORT ---
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 Sorting Yard Name Role Phone ELOISE ESCALERA Unavailable PROBLEMS Type Condition ICD9-CM Code VOE30-LV Code Onset Dates Condition S tatus SNOMED Code Problem Polycythemia D75.1 Active 3515683 03 Problem Abscess of left genital labia 616.4 Active 361860189 Problem Borderline diabetes 790.29 Active 3039411 Problem Type 2 diabetes mellitus wit h hyperosmolarity without coma, without long-term current use of insulin E11.00 Active 416901961241130 Problem Type 2 diabetes mellitus wit hout complication, without long-term current use of insulin E11.9 Active 043120196 Problem Hypertension I10 Active 8688171 3 Problem Hypertension 401.9 Active 6039599 3 Problem Other abnormal glucose R73.09 Active 672841362 Problem Mixed hyperlipidemia E78.2 Active 380723107 ALLERGIES No Known Allergies SOCIAL HISTORY No smoking Hx information available PLAN OF CARE VITAL SIGNS MEDICATIONS No Known Medications RESULTS No Results PROCEDURES No Known procedures IMMUNIZATIONS No Known Immunizations
--- OUTSIDE RECORDS SUMMARY | 2019-10-07 14:37 | XMS REPORT ---
Author Author Wanda ESCALERA Organization [employer] Address Unknown Phone Unavailable Care Team Providers Care Tool Lathe Operator Name Role Phone ELOISE ESCALERA CP [...] Medications Procedures Procedure Coding System Code Date VENIPUNCT, ROUTINE* CPT-4 99152 Jan 30, 2016 COMPLETE CBC W/AUTO DIFF WBC CPT-4 92234 Jan 30, 2016 Results Name Result Date Reference Range Unit Abnormali ty Flag ROUTINE VENIPUNCTURE Summary Purpose [employer] Submission
--- OUTSIDE RECORDS SUMMARY | 2019-10-07 14:37 | XMS REPORT ---
Author Author Wanda ESCALERA Organization [facility] Address [address] [place] [address] Care Team Providers Care Rn Staff Name Role Phone ELOISE ESCALERA Unavailable PROBLEMS Type Condition ICD9-CM Code OPU59-YO Code Onset Dates Condition S tatus SNOMED Code Problem Polycythemia D75.1 Active 4885263 03 Problem Abscess of left genital labia 616.4 Active 205344936 Problem Borderline diabetes 790.29 Active 6781762 Problem Type 2 diabetes mellitus wit h hyperosmolarity without coma, without long-term current use of insulin E11.00 Active 115192646662260 Problem Type 2 diabetes mellitus wit hout complication, without long-term current use of insulin E11.9 Active 939873527 Problem Hypertension I10 Active 5739566 3 Problem Hypertension 401.9 Active 2723925 3 Problem Other abnormal glucose R73.09 Active 654871655 Problem Mixed hyperlipidemia E78.2 Active 748308983 ALLERGIES No Known Allergies SOCIAL HISTORY No smoking Hx information available PLAN OF CARE VITAL SIGNS MEDICATIONS Medication Instructions Dosage Frequency Start Date End Date Duration S tatus Metformin HCl 1000 MG Orally Twice a day 2 capsules 12h Active RESULTS No Results PROCEDURES No Known procedures IMMUNIZATIONS No Known Immunizations
--- OUTSIDE RECORDS SUMMARY | 2019-10-07 14:37 | XMS REPORT | Continuity of Care Document ---
Author Organization Unknown Address Unknown Phone Unavailable Allergies There is no data. Medications There is no data. 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 Results Test Result Range MICROALBUMIN/CREATININE RATIO, URINE - 0 05/01/17 12:05 CREATININE, RANDOM URINE 125 mg/dL 20-32 0 MICROALBUMIN 4.0 mg/dL See Note: MICROALBUMIN/CREATININE RATIO, RANDOM URINE 32 mcg /mg creat <30 [facility] - 09/02/18 12:36 GLUCOSE 242 mg/dL 65-139 UREA NITROGEN (BUN) 20 mg/dL 7-25 CREATININE 0.77 mg/dL 0.50-1.10 eGFR NON-AFR. THAI 91 mL/min/1.73m2 > OR = 60 eGFR 105 mL/min/1.73m2 > OR = 60 BUN/CREATININE RATIO NOT APPLICABLE (calc) 6-22 SODIUM 138 mmol/L 135-146 POTASSIUM 4.1 mmol/L 3.5-5.3 CHLORIDE 106 mmol/L 98-110 CARBON DIOXIDE 23 mmol/L 20-32 CALCIUM 9.7 mg/dL 8.6-10.2 PROTEIN, TOTAL 7.5 g/dL 6.1-8.1 ALBUMIN 4.4 g/dL 3.6-5.1 GLOBULIN 3.1 g/dL (calc) 1.9-3.7 ALBUMIN/GLOBULIN RATIO 1.4 (calc) 1.0-2. 5 BILIRUBIN, TOTAL 0.5 mg/dL 0.2-1.2 ALKALINE PHOSPHATASE 69 U/L 33-115 AST 14 U/L 10-35 ALT 15 U/L 6-29 TSH - 09/02/18 12:36 TSH 2.55 mIU/L NRG [facility] - 12/21/18 15:58 GLUCOSE 195 mg/dL 65-139 UREA NITROGEN (BUN) 14 mg/dL 7-25 CREATININE 0.73 mg/dL 0.50-1.05 eGFR NON-AFR. THAI 96 mL/min/1.73m2 > OR = 60 eGFR 111 mL/min/1.73m2 > OR = 60 BUN/CREATININE RATIO NOT APPLICABLE (calc) 6-22 SODIUM 139 mmol/L 135-146 POTASSIUM 3.8 mmol/L 3.5-5.3 CHLORIDE 102 mmol/L 98-110 CARBON DIOXIDE 29 mmol/L 20-32 CALCIUM 9.6 mg/dL 8.6-10.4 PROTEIN, TOTAL 7.5 g/dL 6.1-8.1 ALBUMIN 4.2 g/dL 3.6-5.1 GLOBULIN 3.3 g/dL (calc) 1.9-3.7 ALBUMIN/GLOBULIN RATIO 1.3 (calc) 1.0-2. 5 BILIRUBIN, TOTAL 0.6 mg/dL 0.2-1.2 ALKALINE PHOSPHATASE 80 U/L 33-130 AST 13 U/L 10-35 ALT 17 U/L 6-29 CBC - 04/14/19 11:46 WHITE BLOOD CELL COUNT 7.4 Thousand/uL 3 .8-10.8 RED BLOOD CELL COUNT 3.65 Million/uL 3.8 0-5.10 HEMOGLOBIN 13.3 g/dL 11.7-15.5 HEMATOCRIT 38.8 % 35.0-45.0 MCV 106.3 fL 80.0-100.0 MCH 36.4 pg 27.0-33.0 MCHC 34.3 g/dL 32.0-36.0 RDW 14.9 % 11.0-15.0 PLATELET COUNT 242 Thousand/uL 140-400 MPV 11.0 fL 7.5-12.5 ABSOLUTE NEUTROPHILS 4699 cells/uL 1500- 7800 ABSOLUTE MONOCYTES 385 cells/uL 200-950 ABSOLUTE EOSINOPHILS 229 cells/uL 15-500 ABSOLUTE BASOPHILS 81 cells/uL 0-200 NEUTROPHILS 63.5 % NRG LYMPHOCYTES 24.0 % NRG MONOCYTES 5.2 % NRG EOSINOPHILS 3.1 % NRG BASOPHILS 1.1 % NRG ABSOLUTE BAND NEUTROPHILS 229 cells/uL 0 -750 ABSOLUTE LYMPHOCYTES 1776 cells/uL 850-3 900 BAND NEUTROPHILS 3.1 % NRG NOTE NRG Encounters ACCT No. Visit Date/Time Discharge Status Pt. Type Provider Facility Loc./Unit Complaint [id number] 09/02/2018 11:20:00 09/02/2018 23:59:5 9 CLS Outpatient JW [facility]ON[facility] [address] [id number] 04/14/2019 11:20:00 Document Registration [id number] 12/21/2018 15:00:00 Document Registration [id number] 09/02/2018 11:20:00 Document Registration [id number] 05/01/2017 11:00:00 Document Registration [id number] 01/14/2019 08:41:00 019 23:59:59 CLS Outpatient VERNELL LE, HAILEE [place] [facility] CARD HEART MURMER [id number] 10/07/2019 14:31:[address] Emergency ANTONI LE, MARCELLA Jimenez [facility] ER FS POSSIBLE BAT BITE
[2019-10-07] MEDS ORDERED: RABIES IMMUNE GLOBULIN 300 UNIT/ML 5 ML (HyperRAB) IM ONE (15:45)
[2019-10-07] MEDS ORDERED: RABIES VACCINE HUMAN DIPL CELL 1 ML/2.5 UNITS SYR IM ONE (15:45)
--- NOTE | 2019-10-07 16:26 | ED General ---
General Chief Complaint: Bite-Animal/Human/Insect Stated Complaint: POSSIBLE BAT BITE Nursing Triage Note: Patient states a bat flew into her vehicle around 1:30 am this morning and landed on the floor. She states it then flew out another window. She states she did not feel a bite, but presents to the ED to determine whether or not she has been bitten. Nursing Sepsis Screen: No Definite Risk History of Present Illness Date Seen by Provider: Oct 07, 2019 Time Seen by Provider: 14:30 Initial Comments 48yo female sent in by primary care physician for evaluation of exposure to a bat. The bat flew into the vehicle that the patient was driving in last night and flew around for some time. Unclear if the bat bit anyone in the vehicle but they do state that the bat was in the vehicle for "some time." Patient does not note any particular injury or pain anywhere and there are no signs of any bite. Patient denies any complaints of any kind otherwise. Allergies and Home Medications Allergies Coded Allergies: cephalexin (Verified Allergy, Unknown, 10/07/19) clindamycin (Verified Allergy, Unknown, 10/07/19) Patient Home Medication List Home Medication List Reviewed: Yes Review of Systems Review of Systems Constitutional: see HPI All Other Systems Reviewed Negative Unless Noted: Yes Past Gfzalam-Thtqsa-Kjosjj Hx Past Med/Social Hx: Reviewed Nursing Past Med/Soc Hx Patient Social History Recent Foreign Travel: No Contact w/Someone Who Travel: No Recent Infectious Disease Expo: No Family Medical History Reviewed Nursing Family Hx Physical Exam Vital Signs Vital Signs - First Documented 10/07/19 14:41 Temp 36.1 Pulse 86 Resp 20 B/P (MAP) 149/89 (109) Pulse Ox 99 O2 Delivery Room Air Capillary Refill : Less Than 3 Seconds Height, Weight, BMI Height: '" Weight: lbs. oz. kg; 45.00 BMI Method: General Appearance: No Apparent Distress Comments This is a 48yo female appearing nontoxic and in no acute distress. Head is n ormocephalic and atraumatic. Neck is supple and nontender. Oropharynx is moist. Lungs are clear to auscultation at all stations. There is a normal S1 and S2 without rubs or gallops and capillary refill is appropriate, less than 2 seconds globally. Abdomen is soft, nontender and nondistended. Skin is warm and dry without cyanosis, clubbing or edema. Psychiatrically, the patient demonstrates appropriate mood and affect and is alert. Progress/Results/Core Measures Suspected Sepsis Recent Fever Within 48 Hours: No Infection Criteria Present: None New/Unexplained Altered Menta: No Sepsis Screen: No Definite Risk SIRS Temperature: Pulse: 86 Respiratory Rate: 20 Blood Pressure 149 /89 Mean: 109 Results/Orders My Orders Orders - MARCELLA CORRALES MD Rabies Immune Globulin/Pf Inj (Hyperrab (10/07/19 15:45) Rabies Vaccine Human Dipl Cell (Rabavert (10/07/19 15:45) Vital Signs/I&O 10/07/19 14:41 Temp 36.1 Pulse 86 Resp 20 B/P (MAP) 149/89 (109) Pulse Ox 99 O2 Delivery Room Air Capillary Refill : Less Than 3 Seconds Blood Pressure Mean: 109 Progress Note : Time: 16:30 Progress Note 48yo female who presents for evaluation of fairly protracted bat exposure in the back of a vehicle; bat was flapping around and had skin contact with the patient. Rabies immunoglobulin and vaccination series are indicated. No sign of any clear bite injury so we'll hold off on antibiotic course at this time. Patient is to follow-up with primary care in the next 2-4 days and to return for indicated additional vaccinations in the rabies series. She agrees with this plan of care and questions are answered. Departure Impression Primary Impression: Exposure to bat without known bite Disposition: 01 HOME, SELF-CARE Condition: Improved Departure-Patient Inst. Referrals: HAILEE MATT MD (PCP/Family) Primary Care Physician Patient Instructions: Animal Bites (DC) Add. Discharge Instructions: Follow-up as instructed for the additional vaccination in the rabies vaccination series, 3, 7 and 14 days after your bat exposure. Follow-up with your primary care physician in the next 2-4 days for a reevaluation of your symptoms and a discussion of next steps in care. Return right away for worsening symptoms of any kind or with any other new symptoms of concern. MARCELLA CORRALES MD Oct 07, 2019 16:26
[2019-10-07 17:28] VITALS: BP 149/89
== END 2019-10-07 17:28 | disposition home or self-care (01) ==
LOC: EDUNIT# 14:30 → ER FS 14:31
DX: Z20.3 Contact with and (suspected) exposure to rabies (principal); Z23 Encounter for immunization; Z88.1 Allergy status to other antibiotic agents
CPT/HCPCS: 90375; 90471; 90675; 96372; 99283

== ENCOUNTER → 2022-07-03 | Outpatient (CLI) | payer MEDICAID | LOC: CARD 10:54 | PROVIDERS: ATTEND Nurse Practitioner Family | DX: I35.8 Other nonrheumatic aortic valve disorders (principal) | CPT/HCPCS: 93306 ==